=== PATIENT | female | born 1990 | race African-American/Black ===

== ENCOUNTER 2021-01-01 11:33 | Emergency (ER) | payer BC, SELFPAY ==
--- NOTE | ~2021-01-01 | US_ITS ---
US venous doppler LE RT DATE: 01/01/2021 12:37 INDICATION: Right leg pain TECHNIQUE: Real-time and color flow imaging and Doppler analysis of the veins of the right lower extr emity COMPARISON: None FINDINGS: The right greater saphenous vein is patent. There is spontaneous and phasic flow and normal augmentation and color flow signal and normal compression of the deep veins with the exception of th e peroneal vein. No flow is demonstrated in the peroneal veins, nor compression. IMPRESSION: Peroneal veins thrombosis Reviewed, dictated and finalized at [facility] Reviewed, dictated and finalized at [facility]. IMPRESSION: Peroneal veins thrombosis
[2021-01-01 11:41] VITALS: BP 131/93; PULSE 100; RESP 16; TEMP 36.4; O2SAT 100
--- NOTE | 2021-01-01 13:12 | ED.GENADULT ---
HPI - General Adult General Chief complaint: Extremity Injury, Lower Stated complaint: rle pain Time Seen by Provider: 01/01/21 11:56 Source: patient Mode of arrival: ambulatory Limitations: no limitations History of Present Illness HPI narrative: Patient is a 30-year-old female who presents to emergency department for right calf pain has been present for the last several days patient notes mother and other family members with history of clotting disorder was recently started on a new control medication notes a dull aching pain in the calf denies any chest pain shortness of breath lightheadedness dizziness or other complaints does not appear uncomfortable upon arrival Related Data Home Medications Medication Instructions Recorded Confirmed amphetamine sulfate 5 mg tablet 5 mg PO DAILY 07/05/20 Allergies Allergy/AdvReac Type Severity Reaction Status Date / Time No Known Allergies Allergy Verified 01/01/21 11:44 Review of Systems Review of Systems: All systems reviewed & are unremarkable except as noted in HPI and below PMFSH Past Medical History Medical History Attention deficit disorder History of genital warts Surgical History Surgical History [place] teeth removed Family History Family History Mother Blood clot in vein Hypertension Social History Social History Smoking status: Light tobacco smoker Alcohol intake: current Substance use: never Gender identity (if verbalized by the patient): Female Exam Narrative: Exam Narrative: GENERAL: Well-appearing, well-nourished, and in no acute distress. HEAD: Normocephalic, atraumatic. EYES: PERRLA and EOMI. ENT: Nares clear, no rhinorrhea or epistaxis. Mucous membranes moist. CHEST: Clear to auscultation. No respiratory distress. No wheezes rales or rhonchi HEART: Regular rate and rhythm. No murmur heard. Normal peripheral pulses. EXTREMITIES: Normal range of motion. No edema. Tenderness of the right calf SKIN: Warm, dry, no rash. NEURO: No focal deficits. Alert and oriented x3. Neurovascularly intact PSYCH: Normal mood and affect. Course Course Emergency Course: Patient evaluated emergency department found to have DVT hemodynamically stable ABCs and vital signs intact and stable started on Eliquis will follow with her primary care felt appropriate for outpatient reevaluation given reasons to return Vital Signs Vital signs: Vital Signs Temperature 97.5 F L 01/01/21 11:41 Pulse Rate 100 01/01/21 11:41 Respiratory Rate 16 01/01/21 11:41 Blood Pressure 131/93 H 01/01/21 11:41 Pulse Oximetry 100 01/01/21 11:41 Temperature 97.5 F L 01/01/21 11:41 Pulse Rate 100 01/01/21 11:41 Respiratory Rate 16 01/01/21 11:41 Blood Pressure 131/93 H 01/01/21 11:41 Pulse Oximetry 100 01/01/21 11:41 Medical Decision Making MDM Narrative Medical decision making narrative: Patients injury or pain is consistent with musculoskeletal etiology. No signs of neurological or vascular compromise on exam. Compartments and tisues are soft without signs of compartment syndrome. Pain is felt appropriate for further evaluation on an outpatient basis. Started on Eliquis treated for DVT advised to discontinue using her control and use barrier contraception until she sees her primary care doc Vital Signs Vital Signs: Vital Signs Temperature 97.5 F L 01/01/21 11:41 Pulse Rate 100 01/01/21 11:41 Respiratory Rate 16 01/01/21 11:41 Blood Pressure 131/93 H 01/01/21 11:41 Pulse Oximetry 100 01/01/21 11:41 Temperature 97.5 F L 01/01/21 11:41 Pulse Rate 100 01/01/21 11:41 Respiratory Rate 16 01/01/21 11:41 Blood Pressure 131/93 H 01/01/21 11:41 Pulse Oximetry 100 01/01/21 11:41
[2021-01-01 13:17] LABS: Basophils Percent Auto 0.3 % (0.2-1.2); Eosinophils Absolute Auto 0.1 K/mm3 (0-0.3); Eosinophils Percent Auto 1.2 % (0-4.4); Hematocrit 34.2 % (37.0-47.0); Hemoglobin 10.9 g/dL (12.0-15.0); Immature Granulocyte Absolute 0.02 K/mm3 (0.00-0.031); Immature Granulocyte Percent A 0.3 % (0-0.5); Lymphocytes Percent Auto 35.1 % (18.3-44.2); Mean Corpuscular HGB Conc 31.9 g/dl (32-36); Mean Corpuscular Hemoglobin 27.9 pg (26-34); Mean Corpuscular Volume 87.7 fl (80-100); Mean Platelet Volume 8.7 fl (7.4-10.4); Monocytes Absolute Auto 0.4 K/mm3 (0.1-0.6); Monocytes Percent Auto 7.3 % (2.6-8.5); Neutrophils Absolute Auto 3.3 K/mm3 (1.3-6.7); Neutrophils Percent Auto 55.8 % (45.5-73.1); Platelet Count Result 263 k/mm3 (150-375); Red Cell Distribution Width 16.6 % (11.5-14.5)
[2021-01-01] MEDS: APIXABAN 5 MG TABLET 10 MG PO (13:26)
[2021-01-01 13:29] VITALS: BP 136/85; PULSE 92; RESP 18; O2SAT 100
[2021-01-01 13:30] LABS: Anion Gap 4 mmol/L (8-16); Blood Urea Nitrogen 11 mg/dL (7-17); Carbon Dioxide 27 mmol/L (22-30); Chloride 106 mmol/L (98-107); Estimated CRCL calculation 83 ml/min; Estimated Glomerular Filt Rate > 60; Glucose 100 mg/dL (65-105); Potassium 4.4 mmol/L (3.4-5.0); Sodium 137 mmol/L (137-145)
== END 2021-01-01 13:30 | disposition home or self-care (01) ==
PROVIDERS: Emergency Medicine Emergency Medical Services; Emergency Provider Family Medicine
DX: I82.451 Acute embolism and thrombosis of right peroneal vein (principal); F98.8 Other specified behavioral and emotional disorders with onset usually occurring in childhood and adolescence; F17.200 Nicotine dependence, unspecified, uncomplicated
CPT/HCPCS: 36415; 80048; 85025; 93971; 99284; A9270

== ENCOUNTER 2021-05-25 07:15 | Emergency (ER) | payer BC, SELFPAY ==
--- NOTE | ~2021-05-25 | XR_ITS ---
EXAMINATION: XR chest 1V portable EXAM DATE: 05/25/2021 07:41 INDICATION: COVID positive diagnosed May 09. Chest tightness. History of blood clots. TECHNIQUE: Portable AP frontal chest x-ray was obtained. Comparison is made to prior examination from 12/15/2011. FINDINGS: The lungs are clear. There are no pleural effusions. The cardiomediastinal silhouette is within normal limits. There is no pneumothorax suspected. The bones and soft tissues are unremarkab le. IMPRESSION: No acute cardiopulmonary findings. Reviewed, dictated and finalized at [facility].
--- NOTE | ~2021-05-25 | CT_ITS ---
EXAMINATION: CTA chest PE protocol EXAM DATE: 05/25/2021 08:28 INDICATION: Recent COVID diagnosis, chest tightness and shortness of breath. History of blood clot in leg. TECHNIQUE: Spiral CTA of the chest (pulmonary arteries) was performed with 100 cc Omnipaque 350 intr avenous contrast injection. Images were acquired during the pulmonary arterial phase. Coronal maxi mum intensity projection 3D-reconstructions were created by the technologist on dedicated workstation . Axial, coronal and sagittal reformatted images were reviewed. The dose-length product (DLP) for t his examination was 179.19 mGy-cm. The exposure was tailored according to patient size (auto mA exp osure control), and iterative reconstruction (ASIR) was used as additional dose reduction technique. Comparison is made to prior examination from 12/05/2011. FINDINGS: Pulmonary arteries are well opacified and without intraluminal filling defects. No thora cic aortic dissection. Several small regions of right-sided peripheral groundglass airspace disease, appearance and distribution consistent with early COVID pneumonia. There are no pleural or pericard ial effusions. Tracheobronchial tree is patent. Mild reactive right hilar lymphadenopathy. There is no pneumothorax. Heart normal in size. No evidence of coronary arterial calcification. Upper abdomen is unremarkable. The bones are unremarkable. IMPRESSION: 1. Small amount of right-sided groundglass opacity, consistent with COVID pneumonia. 2. Reactive right hilar lymphadenopathy. Reviewed, dictated and finalized at [facility]. IMPRESSION: 1. Small amount of right-sided groundglass opacity, consistent with COVID pneu monia. 2. Reactive right hilar lymphadenopathy.
[2021-05-25 07:18] VITALS: BP 115/88; PULSE 80; RESP 18; TEMP 36.4; O2SAT 100
--- NOTE | 2021-05-25 07:28 | ECG_ITS ---
Measurements Intervals [place] Rate: 78 P: 54 OR: 155 QRS: 34 QRSD: 77 T: 0 QT: 343 QTc: 392 Interpretive Statements SINUS RHYTHM BASELINE ARTIFACT- I, III, AVL, V4-V6 NORMAL ECG Electronically Signed On 05-25-2021 8:36:48 CDT by Jase Parham D.O.
[2021-05-25 07:31] VITALS: BP 116/79; PULSE 81; RESP 14; O2SAT 100
[2021-05-25 07:38] LABS: Basophils Percent Auto 0.5 % (0.2-1.2); Eosinophils Absolute Auto 0.1 K/mm3 (0-0.3); Eosinophils Percent Auto 1.5 % (0-4.4); Hematocrit 32.6 % (37.0-47.0); Hemoglobin 9.8 g/dL (12.0-15.0); Immature Granulocyte Absolute 0.03 K/mm3 (0.00-0.031); Immature Granulocyte Percent A 0.5 % (0-0.5); Lymphocytes Absolute Auto 2.45 K/mm3 (0.9-3.2); Lymphocytes Percent Auto 37.3 % (18.3-44.2); Mean Corpuscular HGB Conc 30.1 g/dl (32-36); Mean Corpuscular Hemoglobin 25.3 pg (26-34); Mean Platelet Volume 9.2 fl (7.4-10.4); Monocytes Absolute Auto 0.6 K/mm3 (0.1-0.6); Monocytes Percent Auto 9.1 % (2.6-8.5); Neutrophils Absolute Auto 3.4 K/mm3 (1.3-6.7); Neutrophils Percent Auto 51.1 % (45.5-73.1); Platelet Count Result 325 k/mm3 (150-375); Red Blood Count 3.88 M/mm3 (4.2-5.4); Red Cell Distribution Width 17.2 % (11.5-14.5); White Blood Count 6.6 K/mm3 (4.5-10.0)
[2021-05-25 07:46] VITALS: BP 110/73; PULSE 74; RESP 19; O2SAT 100
[2021-05-25 07:49] LABS: Anion Gap 6 mmol/L (8-16); Blood Urea Nitrogen 9 mg/dL (7-17); Calcium 9.1 mg/dL (8.4-10.2); Carbon Dioxide 21 mmol/L (22-30); Chloride 110 mmol/L (98-107); Estimated CRCL calculation 91 ml/min; Estimated Glomerular Filt Rate > 60; Glucose 90 mg/dL (65-110); Potassium 4.3 mmol/L (3.4-5.0); Sodium 137 mmol/L (137-145)
[2021-05-25 07:58] LABS: Prothrombin Time 12.8 Seconds (11.1-14.7)
[2021-05-25 07:59] LABS: Partial Thromboplastin Time 23.8 SECONDS (22.3-36.8)
[2021-05-25 08:00] LABS: Troponin I < 0.012 ng/mL (0.000-0.034)
[2021-05-25 08:01] VITALS: BP 106/79; PULSE 74; RESP 20; O2SAT 100
--- NOTE | 2021-05-25 09:24 | ED.GENADULT ---
HPI - General Adult General Chief complaint: Upper Respiratory Infection Stated complaint: Chest Pressure Time Seen by Provider: 05/25/21 07:33 Source: patient History of Present Illness HPI narrative: Patient had Covid symptoms on May 07, 2 days later tested positive for COVID-19. Been quarantined since. Today supposed to go back to work came to the emergency room complaining of chest pain. Patient denies any fever, chills, nausea, vomiting, headache, shortness of breath. History of deep vein thrombosis on Eliquis. Related Data Home Medications Medication Instructions Recorded Confirmed amphetamine sulfate 5 mg tablet 5 mg PO DAILY 07/05/20 Allergies Allergy/AdvReac Type Severity Reaction Status Date / Time No Known Allergies Allergy Verified 01/01/21 11:44 Review of Systems Review of Systems: CONSTITUTIONAL: Denies fever, chills, or sweats. EYES: Denies visual changes, redness, or discharge. ENT: Denies rhinorrhea, congestion, sore throat, or otalgia. CARDIOVASCULAR: Denies chest pain, palpitations, or edema. RESPIRATORY: Denies cough or dyspnea. GASTROINTESTINAL: Denies abdominal pain, nausea, vomiting, or diarrhea. GENITOURINARY: Denies dysuria or hematuria. SKIN: Denies rash or itching. MUSCULOSKELETAL: Denies back pain, joint pain, or myalgia. NEUROLOGIC: Denies headache, numbness, or weakness. PSYCHIATRIC: Denies anxiety or depression. PMFSH Past Medical History Medical History Attention deficit disorder History of genital warts Surgical History Surgical History [place] teeth removed Family History Family History Mother Blood clot in vein Hypertension Social History Social History Smoking status: Light tobacco smoker Alcohol intake: current Substance use: never Gender identity (if verbalized by the patient): Female Exam Narrative: General appearance: Well-developed, well-nourished Skin: Normal color Head: Normocephalic, nontraumatic Eyes: Clear conjunctiva ENT: Oropharynx normal, ears normal, nose normal Neck: Supple, nontender Chest and respiratory: Airway patent, no respiratory distress, no accessory muscle use Heart: Regular rate/rhythm Abdomen: Soft, nontender, no organomegaly, quiet bowel sounds Vascular: Normal peripheral pulses, normal capillary refill. Musculoskeletal: Normal range of motion, nontender back Neurologic: Alert and oriented ?3, HEAD CHARGER is normal as tested, no gross motor deficit Course Course Emergency Course: Stable Vital Signs Vital signs: Vital Signs Temperature 36.4 C L 05/25/21 07:18 Pulse Rate 80 05/25/21 07:18 Respiratory Rate 18 05/25/21 07:18 Blood Pressure 115/88 05/25/21 07:18 Pulse Oximetry 100 05/25/21 07:18 Temperature 36.4 C L 05/25/21 07:18 Pulse Rate 74 05/25/21 08:01 Respiratory Rate 20 05/25/21 08:01 Blood Pressure 106/79 05/25/21 08:01 Pulse Oximetry 100 05/25/21 08:01 Medical Decision Making Vital Signs Vital Signs: Vital Signs Temperature 36.4 C L 05/25/21 07:18 Pulse Rate 80 05/25/21 07:18 Respiratory Rate 18 05/25/21 07:18 Blood Pressure 115/88 05/25/21 07:18 Pulse Oximetry 100 05/25/21 07:18 Temperature 36.4 C L 05/25/21 07:18 Pulse Rate 74 05/25/21 08:01 Respiratory Rate 20 05/25/21 08:01 Blood Pressure 106/79 05/25/21 08:01 Pulse Oximetry 100 05/25/21 08:01 Lab Data Result diagrams: 05/25/21 07:31 05/25/21 07:31 Labs: Lab Result
[2021-05-25 09:30] VITALS: BP 109/83; PULSE 77; RESP 15; O2SAT 100
[2021-05-25 09:45] VITALS: BP 117/82; PULSE 73; RESP 12; O2SAT 100
== END 2021-05-25 09:45 | disposition home or self-care (01) ==
PROVIDERS: Emergency Provider Emergency Medicine
DX: U07.1 COVID-19 (principal); J12.82 Pneumonia due to coronavirus disease 2019; R07.9 Chest pain, unspecified; F98.8 Other specified behavioral and emotional disorders with onset usually occurring in childhood and adolescence; F17.200 Nicotine dependence, unspecified, uncomplicated
CPT/HCPCS: 36415; 71045; 71275; 80048; 84484; 85025; 85610; 85730; 93005; 99284; Q9967

== ENCOUNTER 2021-11-25 07:17 | Emergency (ER) | payer BC, SELFPAY ==
--- NOTE | ~2021-11-25 | CT_ITS ---
EXAMINATION: CT brain wo con EXAM DATE: 11/25/2021 07:47 INDICATION: Head Trauma, On Elequis, Worsening Headache . TECHNIQUE: Spiral CT of the head was performed without contrast. Axial, coronal and sagittal images were reviewed. The dose-length product (DLP) for this examination was 605.33 mGy-cm. The exposure w as tailored according to patient size, and iterative reconstruction (ASIR) was used as additional dos e reduction technique. There is no prior study for comparison. FINDINGS: There is no acute intraparenchymal hemorrhage. No evidence of intraparenchymal brain mass lesion. No evidence of acute infarction. There is no mass effect or midline shift. The ventricles are normal in size. There are no extra-axial collections. There are no acute calvarial fractures. T he orbits are unremarkable. Soft tissue is unremarkable. The visualized sinuses and mastoid air dagoberto ls are well aerated. IMPRESSION: 1. Unremarkable head CT examination. Reviewed, dictated and finalized at [facility]. GER DRILLING
[2021-11-25 07:22] VITALS: BP 125/92; PULSE 82; RESP 18; TEMP 36.6; O2SAT 100
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
[2021-11-25] MEDS: KETOROLAC 30 MG/ML VIAL (*BKC) IM (08:11)
== END 2021-11-25 08:55 | disposition home or self-care (01) ==
LOC: ANHED 08:35
PROVIDERS: Emergency Provider Emergency Medicine
DX: S01.81XD Laceration without foreign body of other part of head, subsequent encounter (principal); X99.0XXD Assault by sharp glass, subsequent encounter
CPT/HCPCS: 70450; 96372; 99284; J1885

== ENCOUNTER 2022-05-28 14:04 | Emergency (ER) | payer BC, SELFPAY ==
[2022-05-28 14:13] VITALS: BP 120/71; PULSE 81; RESP 18; TEMP 36.1; O2SAT 100
--- NOTE | 2022-05-28 14:42 | ED.EAR ---
HPI - Ear Problem General Chief complaint: Ear Stated complaint: Right Ear Irritation Time Seen by Provider: 05/28/22 14:42 Source: patient, RN notes reviewed and old records reviewed Mode of arrival: ambulatory Limitations: no limitations History of Present Illness HPI Narrative: 32-year-old female presents to the [facility] with complaints of ear pressure, irritation for at least 2 weeks. Reports ear popping or feels clogged. Has been using ring relief eardrops Denies headache. Denies fevers. No chest pain or shortness of breath. Denies any other upper respiratory symptoms Related Data Allergies Allergy/AdvReac Type Severity Reaction Status Date / Time No Known Allergies Allergy Verified 01/01/21 11:44 Review of Systems Review of Systems: All systems reviewed & are unremarkable except as noted in HPI and below Constitutional: Constitutional: Reports no additional constitutional complaints, Denies chills and Denies fever(s) Eyes: Eyes: Reports no additional eye complaints ENT: Reports system reviewed and no additional complaints, except as documented Cardiovascular: Cardiovascular: Reports no additional cardiovascular complaints Respiratory: Respiratory: Reports no additional respiratory complaints Gastrointestinal: Gastrointestinal: Reports no additional gastrointestinal complaints Musculoskeletal: Musculoskeletal: Reports no additional musculoskeletal complaints Integumentary/Breasts: Skin/Breast: Reports system reviewed and no additional complaints, except as docu Neurologic: Reports system reviewed and no additional complaints, except as documented Psychiatric: Psychiatric: Reports no additional psychiatric complaints Allergic/Immunologic: Allergic/Immunologic: Reports no additional allergic/immunologic complaints [facility] Past Medical History Medical History Attention deficit disorder History of genital warts Surgical History Surgical History [place] teeth removed Family History Family History Mother Blood clot in vein Hypertension Social History Social History Smoking status: Light tobacco smoker Alcohol intake: current Substance use: never Gender identity (if verbalized by the patient): Female Comments At the time of my signature, I reviewed and agree with the nursing past medical, surgical, social, and family history. There is no relevant family history pertinent to the patient complaint. Exam Const: General: healthy appearing, no acute distress and alert Nutritional Appearance: well nourished Orientation/consciousness: patient oriented x3 Limitations: no limitations HENMT: Head: normal to inspection Ears: external ears normal, Abnormal EAC present erythema bilateral, edema bilateral and EAC tenderness and TM abnormal bulging bilateral; Negative for diffuse and with fluid behind the TM bilateral; not erythematous Eyes: General: appearance normal, both eyes and all related structures Pupils: Equal, round and reactive pupils present Neck: Neck: normal visual inspection, no lymphadenopathy and no meningeal signs Chest: Chest palpation & inspection: normal inspection of the chest Resp: Effort & Inspection: normal respiratory effort and no use of accessory muscles Auscultation: clear to auscultation bilaterally, no crackles, no rales, no rhonchi and no wheezes Cardio: Rate: regular rate Rhythm: regular rhythm Back/Spine/Pelvis: Cervical Spine: normal cervical lordosis Thoracic/Lumbar Spine: thoracic and lumbar spine normal to inspection Skin: General skin exam: normal color Rashes: no rashes Wounds: no wounds Neuro: General: patient oriented x3, moves all extremities, no meningeal signs and no focal motor deficits Cranial nerves: Yes Equal, round and r
== END 2022-05-28 14:59 | disposition home or self-care (01) ==
PROVIDERS: Emergency Provider Nurse Practitioner
DX: H65.113 Acute and subacute allergic otitis media (mucoid) (sanguinous) (serous), bilateral (principal); S00.412A Abrasion of left ear, initial encounter; S00.411A Abrasion of right ear, initial encounter; X58.XXXA Exposure to other specified factors, initial encounter; F17.290 Nicotine dependence, other tobacco product, uncomplicated
CPT/HCPCS: 99213; G0463

== ENCOUNTER 2023-04-24 02:06 | Emergency (ER) | payer BC, SELFPAY ==
--- NOTE | ~2023-04-24 | CT_ITS ---
Non-contrast CT scan of the Abdomen and Pelvis Clinical indication: Kidney stone Technique: 2.5 mm axial scans were obtained through the abdomen and pelvis without intravenous or or al contrast. Dose reduction technique was used on this scan by utilizing automated exposure control a nd iterative reconstruction technique. The dose-length product (DLP) was 664.49 mGy-cm. Findings: Images through the lung bases reveal no abnormalities. Questionable minimal fullness of the left ureter. No stones identified in either side. No helen hydro nephrosis. The liver, spleen, pancreas, gallbladder, and adrenals appear normal. There is no aortic aneurysm. There is no evidence of bowel obstruction. No evidence to suggest appendicitis. Images through the pelvis were performed. There is no evidence of ascites or lymphadenopathy. Urinary bladder unremarkable. No pelvic mass seen. No ascites. Impression: Questionable minimal fullness left ureter. Consider recently passed stone. No other significant findings. Reviewed, dictated and finalized at [facility]. Impression: Questionable minimal fullness left ureter. Consider recently passed stone. No other significant findings.
[2023-04-24 02:08] VITALS: BP 130/83; PULSE 113; RESP 20; TEMP 37.1; O2SAT 96
[2023-04-24 02:17] VITALS: BP 133/84; PULSE 108; RESP 25; O2SAT 100
--- NOTE | 2023-04-24 02:36 | ED.GENADULT ---
HPI - General Adult General Chief complaint: Nausea/Vomiting/Diarrhea Stated complaint: flu symptoms Time Seen by Provider: 04/24/23 02:23 History of Present Illness HPI narrative: 33 year old female presented with dysuria, suprapubic pain, and nausea/vomiting. Per patient for the past two days she has been having dysuria and urinary frequency, associated with suprapubic discomfort, bilateral flank pain, and non bilious non bloody emesis. She denied hematuria, diarrhea, chest pain, shortness of breath, fever, vaginal bleeding, vaginal discharge. Related Data Allergies Allergy/AdvReac Type Severity Reaction Status Date / Time oral contraceptive pill AdvReac Other Uncoded 12/18/22 12:24 Review of Systems Review of Systems: See HPI PENDING SALE TO [facility] Past Medical History Medical History Attention deficit disorder History of blood clots when on OCP History of genital warts Surgical History Surgical History [place] teeth removed Family History Family History Mother Blood clot in vein Hypertension Social History Social History Smoking status: Light tobacco smoker Tobacco type: e-cigarettes/vaping Alcohol intake: current Substance use: never Lack of Transportation: No Lack of Food: Never True Current Housing: I Have Housing Concerned About Future Housing: No Difficulty Paying Gas/Electric Bills: No Difficulty Paying for Meds: No Currently Unemployed: No Education: Master's Degree or Higher Difficulty w/ Childcare or Family Care: No Living arrangements: with family Occupation/Education: occupation Gender identity (if verbalized by the patient): Female Sexual Orientation (if Verbalized by the Patient): Straight or Heterosexual Spiritual care concerns: Yes Exam Narrative: General: Alert, calm and cooperative, no acute distress, phonating, sitting comfortably during visit HEENT: Pupils equal round and reactive to light, extra ocular movements intact, no conjunctival injection, head atraumatic, neck supple without meningismus Cardiovascular: Regular rate and rhythm, no visible jugular venous distension Respiratory: Lungs clear to auscultation bilaterally, no wheezing/rales/rhonchi Abdominal: soft, non-tender, non-distended, no guarding, no rebound/peritoneal signs, no costovertebral tenderness to palpation Back: no midline tenderness to palpation, no step offs Extremities: No edema, palpable peripheral pulses, warm, well perfused, no tenderness to bilateral calves Neurological: Alert, moving all extremities symmetrically, ambulating without deficit Course Reevaluation(s) Reevaluation #1: Patient reassessed; reporting resolution of all symptoms. Physical exam benign, sitting comfortably, vitals stable. Date: 04/24/23 Time: 05:55 Vital Signs Vital signs: Vital Signs Temperature 98.7 F 04/24/23 02:08 Pulse Rate 113 H 04/24/23 02:08 Respiratory Rate 20 04/24/23 02:08 Blood Pressure 130/83 04/24/23 02:08 Pulse Oximetry 96 04/24/23 02:08 Oxygen Delivery Room Air 04/24/23 02:08 Temperature 98.7 F 04/24/23 02:08 Pulse Rate 93 04/24/23 06:01 Respiratory Rate 18 04/24/23 06:01 Blood Pressure 104/72 04/24/23 06:01 Pulse Oximetry 100 04/24/23 06:01 Oxygen Delivery Room Air 04/24/23 02:08 Medical Decision Making MDM Narrative Medical decision making narrative: 33 year old female presented with suprapubic discomfort, dysuria, and flank pain. Physical exam benign, abdomen soft and non tender, vitals stable. Differential diagnosis includes but not limited to: nephrolithiasis vs pyelonephritis vs appendicitis vs UTI. Bloodwork reviewed, UA suggestive of UTI vs nephrolithiasis. Patient given toradol and IV fluids with resolution of symptoms. CT abd
[2023-04-24] MEDS: SODIUM CHLORIDE 0.9% IV 1,000 ML 999 ML IV CONT (02:38)
[2023-04-24] MEDS: ONDANSETRON INJ 4 MG/2 ML VIAL IV PUSH (02:50)
[2023-04-24] MEDS: ACETAMINOPHEN 500 MG TABLET 1000 MG PO (02:50)
[2023-04-24 02:52] LABS: Basophils Percent Auto 0.3 % (0.2-1.2); Eosinophils Percent Auto 0.2 % (0-4.4); Hemoglobin 10.3 g/dL (12.0-15.0); Immature Granulocyte Absolute 0.08 K/mm3 (0.00-0.031); Immature Granulocyte Percent A 0.7 % (0-0.5); Lymphocytes Absolute Auto 1.01 K/mm3 (0.9-3.2); Lymphocytes Percent Auto 8.6 % (18.3-44.2); Mean Corpuscular HGB Conc 31.2 g/dl (32-36); Mean Corpuscular Hemoglobin 27.9 pg (26-34); Mean Corpuscular Volume 89.4 fl (80-100); Mean Platelet Volume 9.2 fl (7.4-10.4); Monocytes Absolute Auto 1.2 K/mm3 (0.1-0.6); Monocytes Percent Auto 10.1 % (2.6-8.5); Neutrophils Absolute Auto 9.5 K/mm3 (1.3-6.7); Neutrophils Percent Auto 80.1 % (45.5-73.1); Platelet Count Result 255 k/mm3 (150-375); Red Blood Count 3.69 M/mm3 (4.2-5.4); Red Cell Distribution Width 16.3 % (11.5-14.5); White Blood Count 11.8 K/mm3 (4.5-10.0)
[2023-04-24 02:59] LABS: Appearance Urine Cloudy (Clear); Bacteria Urine None Seen /hpf; Bilirubin Urine Negative (Negative); Blood Urine Trace (Negative); Color Urine Yellow (Yellow); Glucose Urine UA Negative (Negative); Ketones Urine Trace mg/dL (Negative); Leukocyte Esterase Ur 3+ LEU/UL (Negative); Nitrate Urine Negative (Negative); Non Pathogenic Casts 0-2; Protein Urine 2+ mg/dL (Negative); Specific Grav Ur 1.016 (1.001-1.035); Squamous Epithelial Cell Urine Occasional /hpf (Few); WBC Urine >100 /hpf; pH Urine 5.5 (5.0-9.0)
[2023-04-24 03:03] LABS: Alanine Aminotransferase 22 U/L (6-35); Alkaline Phosphatase 76 U/L (38-126); Anion Gap 6 mmol/L (8-16); Aspartate Amino Transferase 28 U/L (14-36); Bilirubin,Total 0.5 mg/dL (0.2-1.3); Blood Urea Nitrogen 10 mg/dL (7-17); Calcium 8.8 mg/dL (8.4-10.2); Carbon Dioxide 25 mmol/L (22-30); Chloride 104 mmol/L (98-107); Estimated CRCL calculation 76 ml/min; Estimated Glomerular Filt Rate > 60; Glucose 115 mg/dL (65-110); Lipase 44 U/L (23-300); Potassium 3.4 mmol/L (3.4-5.0); Sodium 135 mmol/L (137-145)
[2023-04-24 03:06] LABS: Add Urine Microscopic? YES
[2023-04-24 03:24] LABS: SPREG INTERNAL CONTROL Positive; Serum Qual hCG Negative
[2023-04-24] MEDS: KETOROLAC 30 MG/ML VIAL (*BKC) IV PUSH (03:50)
[2023-04-24 06:01] VITALS: BP 104/72; PULSE 93; RESP 18; O2SAT 100
== END 2023-04-24 06:35 | disposition home or self-care (01) ==
PROVIDERS: Emergency Provider Emergency Medicine
DX: N12 Tubulo-interstitial nephritis, not specified as acute or chronic (principal); F17.290 Nicotine dependence, other tobacco product, uncomplicated
CPT/HCPCS: 36415; 74176; 80053; 81001; 81025; 83690; 84703; 85025; 87077; 87086; 87186; 96361; 96365; 96375; 99284; A9270; J0696; J1885; J2405; J7030

== ENCOUNTER 2024-02-10 00:13 | Emergency (ER) | payer BC, SELFPAY ==
[2024-02-10 00:18] VITALS: BP 122/80; PULSE 65; RESP 15; TEMP 36.2; O2SAT 100
[2024-02-10 02:53] LABS: Basophils Percent Auto 0.6 % (0.2-1.2); Eosinophils Percent Auto 0.4 % (0-4.4); Hematocrit 41.3 % (37.0-47.0); Hemoglobin 13.4 g/dL (12.0-15.0); Immature Granulocyte Absolute 0.02 K/mm3 (0.00-0.031); Immature Granulocyte Percent A 0.4 % (0-0.5); Lymphocytes Percent Auto 27.6 % (18.3-44.2); Mean Corpuscular HGB Conc 32.4 g/dl (32-36); Mean Corpuscular Hemoglobin 29.5 pg (26-34); Mean Corpuscular Volume 90.8 fl (80-100); Mean Platelet Volume 8.9 fl (7.4-10.4); Monocytes Absolute Auto 0.6 K/mm3 (0.1-0.6); Monocytes Percent Auto 11.2 % (2.6-8.5); Neutrophils Absolute Auto 3.3 K/mm3 (1.3-6.7); Neutrophils Percent Auto 59.8 % (45.5-73.1); Platelet Count Result 302 k/mm3 (150-375); Red Blood Count 4.55 M/mm3 (4.2-5.4); Red Cell Distribution Width 14.5 % (11.5-14.5); White Blood Count 5.4 K/mm3 (4.5-10.0)
[2024-02-10 03:03] LABS: Alanine Aminotransferase 31 U/L (6-35); Albumin Level 5.3 g/dL (3.5-5.1); Alkaline Phosphatase 65 U/L (38-126); Anion Gap 12 mmol/L (4-12); Aspartate Amino Transferase 39 U/L (14-36); Bilirubin,Total 0.5 mg/dL (0.2-1.3); Blood Urea Nitrogen 13 mg/dL (7-17); Carbon Dioxide 24 mmol/L (22-30); Chloride 102 mmol/L (98-107); Estimated CRCL calculation 86 ml/min; Estimated Glomerular Filt Rate > 60; Glucose 85 mg/dL (65-110); Lipase 95 U/L (23-300); Potassium 3.8 mmol/L (3.4-5.0); Sodium 138 mmol/L (137-145)
[2024-02-10] MEDS: ONDANSETRON INJ 4 MG/2 ML VIAL IV PUSH (03:26)
[2024-02-10] MEDS: SODIUM CHLORIDE 0.9% IV 2,000 ML 999 ML IV CONT (03:26)
[2024-02-10] MEDS: KETOROLAC 15 MG/ML VIAL (*BKC) IV PUSH (03:26)
[2024-02-10] MEDS: FAMOTIDINE 20 MG/2 ML VIAL IV PUSH (03:26)
--- NOTE | 2024-02-10 04:05 | PC.NURSE ---
Pt given water for po challenge.
--- NOTE | 2024-02-10 04:06 | ED.GENADULT ---
HPI - General Adult General Chief complaint: Nausea/Vomiting/Diarrhea Stated complaint: abdominal pain, n/v Time Seen by Provider: 02/10/24 02:31 History of Present Illness HPI narrative: This is a 33-year-old female presenting for nausea vomiting and abdominal pain. Symptoms started on Saturday after she took a Mounjaro shot from her mother. This was not prescribed by physician. Since then she has been having persistent nausea and vomiting. No diarrhea. No fever chills Related Data Allergies Allergy/AdvReac Type Severity Reaction Status Date / Time oral contraceptive pill AdvReac Other Uncoded 12/18/22 12:24 [facility] Past Medical History Medical History Attention deficit disorder History of blood clots when on OCP History of genital warts Surgical History Surgical History [place] teeth removed Family History Family History Mother Blood clot in vein Hypertension Social History Social History Smoking status: Light tobacco smoker Tobacco type: e-cigarettes/vaping Alcohol intake: current Substance use: never Lack of Transportation: No Lack of Food: Never True Current Housing: I Have Housing Concerned About Future Housing: No Difficulty Paying Gas/Electric Bills: No Difficulty Paying for Meds: No Currently Unemployed: No Education: Master's Degree or Higher Difficulty w/ Childcare or Family Care: No Living arrangements: with family Occupation/Education: occupation Gender identity (if verbalized by the patient): Female Sexual Orientation (if Verbalized by the Patient): Straight or Heterosexual Spiritual care concerns: Yes Exam Narrative: APPEARANCE: No apparent distress. Head: atraumatic. EYES: EOMI, NOSE: Atraumatic NECK: Trachea midline RESPIRATORY: No increased rate of breathing CARDIOVASCULAR: RRR, ABDOMINAL: Soft nontender no guarding rebound MUSCULOSKELETAl: No obvious deformities NEURO: Alert. Moving 4/4 extremities SKIN:: Warm, dry. Normal color PSYCHIATRIC: Normal affect Course Vital Signs Vital signs: Vital Signs Temperature 97.1 F L 02/10/24 00:18 Pulse Rate 65 02/10/24 00:18 Respiratory Rate 15 02/10/24 00:18 Blood Pressure 122/80 02/10/24 00:18 Pulse Oximetry 100 02/10/24 00:18 Oxygen Delivery Room Air 02/10/24 00:18 Temperature 97.1 F L 02/10/24 00:18 Pulse Rate 65 02/10/24 00:18 Respiratory Rate 15 02/10/24 00:18 Blood Pressure 122/80 02/10/24 00:18 Pulse Oximetry 100 02/10/24 00:18 Oxygen Delivery Room Air 02/10/24 00:18 Medical Decision Making MDM Narrative Medical decision making narrative: -Course: 33-year-old female presenting nausea vomiting after taking Mounjaro off-label for weight loss. Abdominal exam benign. Laboratory studies within normal limits. Given fluid resuscitation and antiemetics. She is now tolerating p.o.. Patient be discharged antiemetics and return precautions. -DDX includes but is not limited to: Medication side effect, gastroenteritis, cyclic vomiting, biliary colic, colitis appendicitis -Independent interpretation of studies: labs reviewed within normal limits -Interventions: 2 L normal saline, Pepcid, Zofran, Toradol -Shared decision making / Disposition: discharge -RX Zofran Vital Signs Vital Signs: Vital Signs Temperature 97.1 F L 02/10/24 00:18 Pulse Rate 65 02/10/24 00:18 Respiratory Rate 15 02/10/24 00:18 Blood Pressure 122/80 02/10/24 00:18 Pulse Oximetry 100 02/10/24 00:18 Oxygen Delivery Room Air 02/10/24 00:18 Temperature 97.1 F L 02/10/24 00:18 Pulse Rate 65 02/10/24 00:18 Respiratory Rate 15 02/10/24 00:18 Blood Pressure 122/80 02/10/24 00:18 Pulse Oximetry 100 02/10/24 00:18 Oxygen De
[2024-02-10 04:15] VITALS: BP 131/78; PULSE 64; RESP 16; O2SAT 100
--- NOTE | 2024-02-28 13:15 | PC.NURSE ---
LATE ENTRY This note is being entered to document information to the patient's record. The following information was omitted on [02/10/24], by [Adelso Elizondo RN]. IV NS stop time [id number]
== END 2024-02-10 04:42 | disposition home or self-care (01) ==
PROVIDERS: Emergency Provider Emergency Medicine
DX: T38.3X1A Poisoning by insulin and oral hypoglycemic [antidiabetic] drugs, accidental (unintentional), initial encounter (principal); R11.2 Nausea with vomiting, unspecified; F17.290 Nicotine dependence, other tobacco product, uncomplicated
CPT/HCPCS: 36415; 80053; 83690; 85025; 96361; 96374; 96375; 99284; J1885; J2405; J7030

== ENCOUNTER 2024-04-20 13:21 | Outpatient (CLI) | payer BC, SELFPAY ==
[2024-04-20 14:25] LABS: Hepatitis B Surface Antigen Negative (Negative)
[2024-04-20 14:33] LABS: HIV 1/2 Ab P24 Ag Result Negative (Negative)
[2024-04-20 14:43] LABS: Hepatitis C Virus Antibody Negative (Negative)
[2024-04-21 13:35] LABS: Rapid Plasma Reagin Non-Reactive (NonReactive)
== END 2024-04-20 13:22 | disposition home or self-care (01) ==
LOC: ANHLAB 13:22
PROVIDERS: Visit Provider Nurse Practitioner Family
DX: Z11.3 Encounter for screening for infections with a predominantly sexual mode of transmission (principal)
CPT/HCPCS: 36415; 86592; 86703; 86803; 87340; G0432

== ENCOUNTER 2025-04-07 13:17 | Emergency (ER) | payer BC, SELFPAY ==
--- NOTE | ~2025-04-07 | US_ITS ---
EXAM/PROCEDURE: US OB <= 14 weeks fetus - 04/07/2025 14:16 CDT HISTORY: 35 years old Female with VB in COMPARISON: None available. TECHNIQUE: Multiple transvaginal images were obtained. FINdINGS: No intrauterine gestation sac seen. Endometrial thickness is 1.5 mm. There is no myometrial abnormali ty. The ovaries appear unremarkable. 1.8 cm right corpus luteal cyst seen. No significant free fluid is seen. IMPRESSION: No intrauterine gestational sac seen. Reviewed, dictated and finalized at location A.
--- OUTSIDE RECORDS SUMMARY | 2025-04-07 13:31 | XMS_ITS | Encounter Summary ---
Author Organization [facility] Address [address] [place] [address] Care Team Providers Care Supervisor Concrete Stone Finishing Name Role Phone Unavailable Primary Care Provider Unavailabl e Encounter Details Date Type Department Care Team (Late st Contact Info) Description 04/06/2025 External Device Data ST[place] ABSTRACTION Provider, Abstract NO ADDRESS ON FILE Social History Tobacco Use Types Packs/Day Years Used Date Smoking Tobacco: Never Assessed Comments Unknown Sex and Gender Information Value Date Recorded Sex Assigned at Female 04/07/2025 9:06 AM CDT Legal Sex Female 9:54 AM CDT Gender Identity Female 04/07/2025 9:06 AM CDT Sexual Orientation Not on file documented as of this encounter Plan of Treatment Upcoming Encounters Date Type Department Care Team (Late st Contact Info) Description 04/28/2025 9:30 AM CDT Ancillary Procedure [facility] TICKETING CLERK - [address] [address] 04/28/2025 1:00 PM CDT Initial [facility] TICKETING CLERK - [address] [address] Xochitl Schilling, DO [address] [place] [address] documented as of this encounter Visit Diagnoses Not on filedocumented in this encounter
--- OUTSIDE RECORDS SUMMARY | 2025-04-07 13:31 | XMS_ITS | Encounter Summary ---
Author Organization [facility] Address [address] [place] [address] Care Team Providers Care Hot Walker Name Role Phone Unavailable Primary Care Provider [...] Description 04/28/2025 9:30 AM CDT Ancillary Procedure [facility] STOCK GRADER - [address] [address] 04/28/2025 1:00 PM CDT Initial [facility] STOCK GRADER - [address] [address] Xochitl Schilling, DO [address] [place] [address] documented as of this encounter Visit Diagnoses Not on filedocumented in this encounter
--- OUTSIDE RECORDS SUMMARY | 2025-04-07 13:31 | XMS_ITS | Clinical Summary ---
Author Organization [facility] Address [address] [place] [address] Care Team Providers Care Smocking Machine Operator Name Role Phone Sola Mills MD Unavailable [phone] Fiordaliza Dennis NP Unavailable [phone] Unknown, Notinfile Primary Care Provider Unavail able Allergies No known active allergies Medications dextroamphetami ne-amphetamine XR (ADDERALL XR) 20 mg 24 hr capsule Take 20 mg by mouth every morning Active Active Problems Problem Noted Date Diagnosed Date History of DVT (deep vein thrombosis) 05/22/2023 Resolved Problems Problem Noted Date Diagnosed Date Resolved Date Acute deep vein thrombosis ( DVT) of right peroneal vein 01/13/2021 05/22/2023 Encounters Date Type Department Care Team Description 04/01/2025 Telephone [facility] Oncology [address] [place] [address] [place] [address] Colton Cunningham MD 03/31/2025 Patient Self-Triage [facility] HealthCare/ Physicians [address] [place] [address] Mychart, Generic Provider from Last 3 Months Surgical History Surgery Date Site/Laterality Comments VAGINA SURGERY Medical History Medical History Date Comments Hypertension Anxiety Acute deep vein thrombosis (DVT) of right perone al vein (HCC) 01/13/2021 Family History Medical History Relation Name Comments No Known Problems Father Pulmonary embolism Mother Relation Name Status Comments Father Alive Mother Alive Social History Tobacco Use Types Packs/Day Years Used Date Smoking Tobacco: Former Cigarettes Smokeless Tobacco: Never AUDIT-C Answer Date Recorded Q1: How often do you have a drink containing alc ohol? 2-4 times a month 05/13/2023 Q2: How many drinks containi ng alcohol do you have on a typical day when you are drinking? 1 or 2 05/13/2023 Q3: How often do you have si x or more drinks on one occasion? 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 Not on file Not on file Obstetrics History Last Filed Vital Signs Vital Sign Reading Time Taken Comments Blood Pressure 118/83 05/13/2023 3:31 PM CDT Pulse 72 05/13/2023 3:31 PM CDT Temperature 36.7 C (98 F) 05/13/2023 3:31 PM CDT Respiratory Rate 18 05/13/2023 3:31 PM CDT Oxygen Saturation 100% 05/13/2023 3:31 PM CDT Inhaled Oxygen Concentration - - Weight 78.7 kg (173 lb 9.6 oz) 05/13/2023 3:31 P M CDT Height 154.9 cm (5' 1) 05/13/2023 3:31 PM CDT Body Mass Index 32.8 05/13/2023 3:31 PM CDT Plan of Treatment Health Maintenance Due Date Last Done Comments Cervical Cancer Screening 1991 Depression Screening 1991 Hepatitis C Screening 1991 DTaP/Tdap/Td Vaccine (1 - Tdap) 2002 Varicella Vaccines (1 of 2 - 13+ 2-dose series) 2004 Hepatitis B Screening 2009 Regular Well Visit/Exam 18-64 2009 Influenza Vaccine (#1) 2025 HPV Vaccines Aged Out No longer eligi ble based on patient's age to complete this topic Pneumococcal vaccine <65 Aged Out No longer eligible based on patient's age to complete this topic [place] Care Teams Smocking Machine Operator Relationship Specialty Start Date End Date Unknown, Notinfile PCP - General 05/14/23 Sola Mills MD [address] [facility] [address] [place] [address] Referring Physician Obstetrics and Gynecology 07/05/20 Fiordaliza Dennis, TRAVELING OPERATOR [address] [facility] [address] [place] [address] Nurse Practitioner Medical Oncology 05/13/23
--- OUTSIDE RECORDS SUMMARY | 2025-04-07 13:31 | XMS_ITS | Referral Summary ---
Author Organization [facility] Address [address] [place] [address] Care Team Providers Care Template Storage Clerk Name Role Phone Sola Mills MD Unavailable [phone] Fiordaliza Dennis NP Unavailable [phone] Unknown, Notinfile Primary Care Provider Unavail able Encounters Date Type Department Care Team Description 04/01/2025 Telephone [facility] Oncology [facility] [facility] [address] [place] [address] Colton Cunningham MD 03/31/2025 Patient Self-Triage [facility] HealthCare/ Physicians [address] [place] [address] Mychart, Generic Provider from Last 3 Months Allergies No known active allergies Medications dextroamphetami ne-amphetamine XR (ADDERALL XR) 20 mg 24 hr capsule Take 20 mg by mouth every morning Active Active Problems Problem Noted Date Diagnosed Date History of DVT (deep vein thrombosis) 05/22/2023 Resolved Problems Problem Noted Date Diagnosed Date Resolved Date Acute deep vein thrombosis ( DVT) of right peroneal vein 01/13/2021 05/22/2023 Social History Tobacco Use Types Packs/Day Years [...] on file Legal Sex Female 7:47 PM CABINETMAKER HELPER Gender Identity Not on file Sexual Orientation Not on file 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
--- OUTSIDE RECORDS SUMMARY | 2025-04-07 13:31 | XMS_ITS | Encounter Summary ---
Author Organization [facility] Address [address] [place] [address] Care Team Providers Care Legal Support Manager Name Role Phone Unavailable Primary Care Provider [...] Description 04/28/2025 9:30 AM CDT Ancillary Procedure [facility] ROOM WORKER - [address] [address] 04/28/2025 1:00 PM CDT Initial [facility] ROOM WORKER - [address] [address] Xochitl Schilling, DO [address] [place] [address] documented as of this encounter Visit Diagnoses Not on filedocumented in this encounter
--- OUTSIDE RECORDS SUMMARY | 2025-04-07 13:31 | XMS_ITS | Clinical Summary ---
Author Organization [facility] Address [address] [place] [address] Phone Care Team Providers Care Magazine Editor Name Role Phone Unavailable Primary Care Provider Unavailabl e Allergies No known active allergies Medications enoxaparin (Lovenox) 40 mg/0.4 mL injectionIndica tions:Personal history of DVT (deep vein thrombosis) Inject 0.4 mL (40 mg) by subcutaneous injection every 24 hours. 30 Each 2 Active Active Problems No known active problems Encounters Date Type Department Care Team Description 04/06/2025 External Device Data STL ABSTRACTION Provider, Abstract 04/06/2025 External Device Data STL ABSTRACTION Provider, Abstract 04/06/2025 External Device Data STL ABSTRACTION Provider, Abstract 03/31/2025 10:00 AM CDT Office Visit [facility] HOOKER UP [address] [facility] [address] [address] Xochitl Schilling DO Missed menses (Primary Dx); Personal history of DVT (deep vein thrombosis); Vaginal spotting from Last 3 Months Social History Tobacco Use Types Packs/Day Years Used Date Smoking Tobacco: Never Assessed Comments Unknown Sex and Gender Information Value Date Recorded Sex Assigned at Female 04/07/2025 9:06 AM CDT Legal Sex Female 9:54 AM CDT Gender Identity Female 04/07/2025 9:06 AM CDT Sexual Orientation Not on file Last Filed Vital Signs Vital Sign Reading Time Taken Comments Blood Pressure 132/72 03/31/2025 10:07 AM CDT Pulse 86 03/31/2025 10:07 AM CDT Temperature - - Respiratory Rate 14 03/31/2025 10:07 AM CDT Oxygen Saturation 99% 03/31/2025 10:07 AM CDT Inhaled Oxygen Concentration - - Weight 79.8 kg (176 lb) 03/31/2025 10:07 AM CDT Height 157.5 cm (5' 2) 03/31/2025 10:07 AM CDT Body Mass Index 32.19 03/31/2025 10:07 AM CDT Plan of Treatment Upcoming Encounters Date Type Department Care Team (Late st Contact Info) Description 04/28/2025 9:30 AM CDT Ancillary Procedure [facility] HOOKER UP - [address] [facility] [address] [address] 04/28/2025 1:00 PM CDT Initial [facility] HOOKER UP - [address] [facility] [address] [address] Tonie Shaegeraldine Marr, DO [address] [place] [address] Health Maintenance Due Date Last Done Comments DTAP/TDAP/TD VACCINES (1 - Tdap) 2010 HEPATITIS B VACCINES (1 of 3 - 19+ 3-dose series) 2010 HPV/Cotest (21-29) 2012 CERVICAL CANCER SCREENING 2021 HPV/Cotest (30-65) 2021 PAP SMEAR 2021 INFLUENZA VACCINE (#1) 2025 HPV VACCINES Aged Out No longer eligi ble based on patient's age to complete this topic Procedures Procedure Name Priority Date/Time Associated Diagnosis Comments TSH REFLEXIVE Routine 04/06/2025 9:19 AM CDT Missed menses GLUCOSE TOLERANCE 1 HR GESTATIONAL Routine 04/06/2025 9:19 AM CDT Missed menses URINE CULTURE, W/GBS SUSCEPTIBILITIES Routine 04/05/2025 1:37 PM CDT Missed menses GC/CHLAMYDIA, UROGENITAL Routine 025 1:32 PM CDT Missed menses from Last 3 Months Results * GLUCOSE TOLERANCE 1 HR GESTATIONAL (04/06/2025 9:19 AM CDT) GLUCOSE 1 HR OBSTETRIC 107 <135 mg/dL [facility] Comment: FASTING:YES FASTING: YES Test Performed at: [facility] [place] [address] [place] [address] [facility] Blood 04/06/2025 9:19 AM CDT 04/06/2025 9:20 AM CDT Xochitl Schilling DO CHEMISTRY ORDERABLES F inal Result Performing Organization Address City/[facility]/ZIP Code Phone Number [facility] [phone] [place] [address] [place] [address] * TSH REFLEXIVE (04/06/2025 9:19 AM CDT) TSH 1.15 mIU/L [facility] Comment: Reference Range > or = 20 Years 0.40-4.50 Ranges First trimester 0.26-2.66 Second trimester 0.55-2.73 Third trimester 0.43-2.91 FASTING:YES FASTING: YES Test Performed at: [facility] [address] [address] [facility] Blood 04/06/2025 9:19 AM CDT 04/06/2025 9:20 AM CDT Xochitl Schilling DO CHEMISTRY ORDERABLES F inal Result Performing Organization Address City/[facility]/ZIP Code Phone Number [facility] [phone] [place] [address] [address] * URINE CULTURE, W/GBS SUSCEPTIBILITIES (04/05/2025 1:37 PM CDT) CULTURE, URINE, , W/GBS SUSCEPTIBILITIES SEE NOTE [facility] Comment: CULTURE, URINE, , W/GBS SUSCEPTIBILITIES Micro Number: [id number] Test Status: Final Specimen Source: Urnie Specimen Quality: Adequate Result: No Growth Test Performed at: [place] [address] [place] [address] Donta Joshua Urine URINE SPECIMEN OBTAINED BY CLEAN CATCH PROCEDURE / Unknown 04/05/2025 1:37 PM CDT 04/05/2025 1:37 PM CDT Xochitl Schilling DO MICROBIOLOGY - GENERAL ORDERABLES Final Result [facility] [phone] [place] [address] [place] [address] * GC/CHLAMYDIA, UROGENITAL (04/05/2025 1:32 PM CDT) CHLAMYDIA TRACHOMATIS RNA, TMA, UROGENITAL NOT DETECTED NOT DETECTED [facility] NEISSERIA GONORRHOEAE RNA, TMA, UROGENITAL NOT DETECTED NOT DETECTED [facility] COMMENT INFECTIOUS DISEASE [facility] Comment: The analytical performance characteristics of this assay, when used to test SurePath(TM) specimens have been determined by [facility]. The modifications have not been cleared or approved by the FDA. This assay has been validated pursuant to the CLIA regulations and is used for clinical purposes. For additional information, please refer to https://education.[employer]/faq/LYI247 (This link is being provided for information/ educational purposes only.) FASTING:NO FASTING: NO Test Performed at: [place] [address] [address] Donta Joshua MD Genital (Urine, 1st catch) 04/05/2025 1:32 PM CDT 04/05/2025 1:33 PM CDT Xochitl Schilling DO MICROBIOLOGY - GENERAL ORDERABLES Final Result [facility] [phone] [facility] [address] [place] [address] from Last 3 Months Insurance [facility] BLUE ACCESS/TRUE BLUE PPO
[2025-04-07 13:32] VITALS: BP 118/72; PULSE 80; RESP 16; TEMP 36.2; O2SAT 98
--- OUTSIDE RECORDS SUMMARY | 2025-04-07 14:23 | XMS_ITS | Encounter Summary ---
Author Organization [facility] Address [address] [place] [address] Care Team Providers Care Petroleum Engineer Name Role Phone Unavailable Primary Care Provider [...] Description 04/28/2025 9:30 AM CDT Ancillary Procedure [facility] FLAT FOLDER - [address] [address] 04/28/2025 1:00 PM CDT Initial [facility] FLAT FOLDER - [address] [address] Xochitl Schilling, DO [address] [place] [address] documented as of this encounter Visit Diagnoses Not on filedocumented in this encounter
--- OUTSIDE RECORDS SUMMARY | 2025-04-07 14:23 | XMS_ITS | Encounter Summary ---
Author Organization [facility] Address [address] [place] [address] Care Team Providers Care Bookkeeping Service Sales Agent Name Role Phone Unavailable Primary Care Provider [...] Description 04/28/2025 9:30 AM CDT Ancillary Procedure [facility] CIRCUIT BREAKER MECHANIC - [address] [address] 04/28/2025 1:00 PM CDT Initial [facility] CIRCUIT BREAKER MECHANIC - [address] [address] Xochitl Schilling, DO [address] [place] [address] documented as of this encounter Visit Diagnoses Not on filedocumented in this encounter
--- OUTSIDE RECORDS SUMMARY | 2025-04-07 14:23 | XMS_ITS | Clinical Summary ---
Author Organization [facility] Address [address] [place] [address] Care Team Providers Care Call Center Specialist Name Role Phone Sola Mills MD Unavailable [phone] Fiordaliza Dennis NP Unavailable [phone] Unknown, Notinfile Primary Care Provider Unavail able [...] Type Department Care Team Description 04/01/2025 Telephone [facility] Oncology [address] [place] [address] [place] [address] Colton Cunningham MD 03/31/2025 Patient Self-Triage [facility] HealthCare/ Physicians [address] [place] [address] Mychart, Generic Provider from Last 3 Months [...] on file Legal Sex Female 7:47 PM ACCOUNTING MANAGER ASSISTANT CONTROLLER Gender Identity Not on file Sexual Orientation Not on file 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
--- OUTSIDE RECORDS SUMMARY | 2025-04-07 14:23 | XMS_ITS | Referral Summary ---
Author Organization [facility] Address [address] [place] [address] Care Team Providers Care Guard Captain Name Role Phone Sola Mills MD Unavailable [phone] Fiordaliza Dennis NP Unavailable [phone] Unknown, Notinfile Primary Care Provider Unavail able Encounters Date Type Department Care Team Description 04/01/2025 Telephone [facility] Oncology [facility] [facility] [address] [place] [address] Colton Cunningham MD 03/31/2025 Patient Self-Triage [facility] HealthCare/ Physicians [address] [place] [address] Mychart, Generic Provider from Last [...] on file Legal Sex Female 7:47 PM TELEPHONE SEX WORKER Gender Identity Not on file Sexual Orientation Not on file 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
--- OUTSIDE RECORDS SUMMARY | 2025-04-07 14:23 | XMS_ITS | Encounter Summary ---
Author Organization [facility] Address [address] [place] [address] Care Team Providers Care Artificial Stone Setter Name Role Phone Unavailable Primary Care Provider [...] Description 04/28/2025 9:30 AM CDT Ancillary Procedure [facility] INTERLOCKER - [address] [address] 04/28/2025 1:00 PM CDT Initial [facility] INTERLOCKER - [address] [address] Xochitl Schilling, DO [address] [place] [address] documented as of this encounter Visit Diagnoses Not on filedocumented in this encounter
--- OUTSIDE RECORDS SUMMARY | 2025-04-07 14:23 | XMS_ITS | Clinical Summary ---
Author Organization [facility] Address [address] [place] [address] Phone Care Team Providers Care Air Moving Technician Name Role Phone Unavailable Primary Care Provider [...] Abstract 03/31/2025 10:00 AM CDT Office Visit [facility] DIRECTOR CONSUMER - [address] [facility] [address] [address] Xochitl Schilling DO Missed menses [...] Description 04/28/2025 9:30 AM CDT Ancillary Procedure [facility] DIRECTOR CONSUMER - [address] [facility] [address] [address] 04/28/2025 1:00 PM CDT Initial [facility] DIRECTOR CONSUMER - [address] [facility] [address] [address] Tonie Shaegeraldine Marr, DO [address] [place] [address] Health Maintenance Due Date Last [...] GLUCOSE 1 HR OBSTETRIC 107 <135 mg/dL [facility] Comment: FASTING:YES FASTING: YES Test Performed at: [facility] [place] [address] [place] [address] [facility] Blood 04/06/2025 9:19 AM CDT 04/06/2025 9:20 AM CDT Xochitl Schilling DO CHEMISTRY ORDERABLES F inal Result Performing Organization Address City/[facility]/ZIP Code Phone Number [facility] [phone] [place] [address] [place] [address] * TSH REFLEXIVE (04/06/2025 9:19 AM CDT) TSH 1.15 mIU/L [facility] Comment: Reference Range > or = 20 Years 0.40-4.50 Ranges First trimester 0.26-2.66 Second trimester 0.55-2.73 Third trimester 0.43-2.91 FASTING:YES FASTING: YES Test Performed at: [place] [address] [address] [facility] Blood 04/06/2025 9:19 AM CDT 04/06/2025 9:20 AM CDT Xochitl Schilling DO CHEMISTRY ORDERABLES F inal Result Performing Organization Address City/[facility]/ZIP Code Phone Number [facility] [phone] [place] [address] [address] * URINE CULTURE, W/GBS SUSCEPTIBILITIES (04/05/2025 1:37 PM CDT) CULTURE, URINE, , W/GBS SUSCEPTIBILITIES SEE NOTE [facility] Comment: CULTURE, URINE, , W/GBS SUSCEPTIBILITIES Micro Number: [id number] Test Status: Final Specimen Source: Urnie Specimen Quality: Adequate Result: No Growth Test Performed at: [place] [address] [place] [address] Donta Joshua Urine URINE SPECIMEN OBTAINED BY CLEAN CATCH PROCEDURE / Unknown 04/05/2025 1:37 PM CDT 04/05/2025 1:37 PM CDT Xochitl Schilling DO MICROBIOLOGY - GENERAL ORDERABLES Final Result [facility] [phone] [place] [address] [place] [address] * GC/CHLAMYDIA, UROGENITAL (04/05/2025 1:32 PM CDT) CHLAMYDIA TRACHOMATIS RNA, TMA, UROGENITAL NOT DETECTED NOT DETECTED [facility] NEISSERIA GONORRHOEAE RNA, TMA, UROGENITAL NOT DETECTED NOT DETECTED [facility] COMMENT INFECTIOUS DISEASE [facility] Comment: The analytical performance characteristics of this assay, when used to test SurePath(TM) specimens have been determined by [facility]. The modifications have not been cleared or approved by the FDA. This assay has been validated pursuant to the CLIA regulations and is used for clinical purposes. For additional information, please refer to https://education.Events Core/faq/AYG647 (This link is being provided for information/ educational purposes only.) FASTING:NO FASTING: NO Test Performed at: [place] [address] [address] Donta Joshua MD Genital (Urine, 1st catch) 04/05/2025 1:32 PM CDT 04/05/2025 1:33 PM CDT Xochitl Schilling DO MICROBIOLOGY - GENERAL ORDERABLES Final Result [facility] [phone] [facility] [address] [phone] from Last 3 Months Insurance [facility] BLUE ACCESS/TRUE BLUE PPO
[2025-04-07 14:32] LABS: Hematocrit 35.0 % (37.0-47.0); Hemoglobin 11.2 g/dL (12.0-15.0); Immature Granulocyte Percent A 0.2 % (0-0.5); Lymphocytes Absolute Auto 2.03 K/mm3 (0.9-3.2); Mean Corpuscular HGB Conc 32.0 g/dl (32-36); Mean Corpuscular Hemoglobin 30.2 pg (26-34); Mean Corpuscular Volume 94.3 fl (80-100); Nucleated Red Blood Cells Absolute Auto 0.000 K/mm3 (0.0-0.012); Nucleated Red Blood Cells Perc 0.0 % (0.0-0.2); Platelet Count Result 269 k/mm3 (150-375); Red Blood Count 3.71 M/mm3 (4.2-5.4); White Blood Count 4.9 K/mm3 (4.5-10.0)
[2025-04-07 14:40] LABS: Add Urine Microscopic? YES; Alanine Aminotransferase 28 U/L (6-35); Albumin Level 4.3 g/dL (3.5-5.1); Alkaline Phosphatase 33 U/L (38-126); Anion Gap 6 mmol/L (4-12); Appearance Urine Clear (Clear); Aspartate Amino Transferase 33 U/L (14-36); Bilirubin,Total 0.1 mg/dL (0.2-1.3); Blood Urea Nitrogen 9 mg/dL (7-17); Calcium 9.6 mg/dL (8.4-10.2); Carbon Dioxide 24 mmol/L (22-30); Chloride 106 mmol/L (98-107); Estimated CRCL calculation 87 ml/min; Estimated Glomerular Filt Rate > 60; Glucose 119 mg/dL (65-110); Glucose Urine UA Negative (Negative); Leukocyte Esterase Ur Negative LEU/UL (Negative); Nitrate Urine Negative (Negative); Non Pathogenic Casts 0-2; Potassium 3.8 mmol/L (3.4-5.0); Sodium 136 mmol/L (137-145); Specific Grav Ur 1.024 (1.001-1.035); Total Protein 7.7 g/dL (6.3-8.2)
[2025-04-07 14:50] LABS: INR 1.0; Partial Thromboplastin Time 23.0 Seconds (22.3-36.8); Prothrombin Time 12.8 Seconds (11.1-14.7)
[2025-04-07 14:56] LABS: Beta HCG Quantitative 679.36 mIU/ML
--- NOTE | 2025-04-07 16:34 | ED_ITS ---
HPI - General Adult General Chief complaint: Vaginal Bleeding Stated complaint: vaginal bleeding, 6 weeks Time Seen by Provider: 04/07/25 13:58 History of Present Illness HPI narrative: Patient is a 35-year-old female who presents ER with vaginal bleeding. Reports she had a positive test 2 weeks ago. States he started having some spotting on 03/30/2025. On 04/05/2025 she was started on Lovenox due to her history of DVT by her crayon sawyer Dr. Schilling. She has had increased bleeding since then. No significant pelvic cramping. No large clots. She soaks a pad overnight. No fevers or chills. Related Data Home Medications ?Medication ?Instructions ?Recorded ?Confirmed ?Last Taken ?Type No Home Medications 04/20/24 04/20/24 Unknown History Allergies Allergy/AdvReac Type Severity Reaction Status Date / Time oral contraceptive pill AdvReac Other Uncoded 04/07/25 13:34 Review of Systems 2 Review of Systems: All systems reviewed & are unremarkable except as noted in HPI and below Constitutional: Constitutional: Reports no additional constitutional complaints Cardiovascular: Cardiovascular: Reports no additional cardiovascular complaints Respiratory: Respiratory: Reports no additional respiratory complaints Gastrointestinal: Gastrointestinal: Reports no additional gastrointestinal complaints Genitourinary: Genitourinary: Reports no additional female genitourinary complaints [facility] Past Medical History Medical History Attention deficit disorder History of blood clots when on OCP History of genital warts Surgical History Surgical History [place] teeth removed Family History Family History Mother Blood clot in vein Hypertension Social History Social History Smoking status: Light tobacco smoker Tobacco type: e-cigarettes/vaping Alcohol intake: current Substance use: never Lack of Transportation: No Lack of Food: Never True Current Housing: I Have Housing Concerned About Future Housing: No Difficulty Paying Gas/Electric Bills: No Difficulty Paying for Meds: No Currently Unemployed: No Education: Master's Degree or Higher Difficulty w/ Childcare or Family Care: No Living arrangements: with family Occupation/Education: occupation Gender identity (if verbalized by the patient): Female Sexual Orientation (if Verbalized by the Patient): Straight or Heterosexual Spiritual care concerns: Yes Exam 2 Narrative: GENERAL: Well-appearing, well-nourished, and in no acute distress. HEAD: Normocephalic, atraumatic. ENT: Mucous membranes moist. CHEST: Clear to auscultation. No respiratory distress. HEART: Regular rate and rhythm. Normal peripheral pulses. ABDOMEN: Soft, nontender, nondistended. : Normal external genital exam. Speculum exam with closed office with dark blood and no cervical erythema. No vaginal discharge. EXTREMITIES: Normal range of motion. No edema. SKIN: Warm, dry, no rash. NEURO: Alert and oriented x3. PSYCH: Normal mood and affect. Course Course Emergency Course: Patient resting comfortably poured educated on lab and imaging results. Her blood test is positive but we do not see a gestational sac. Most likely she has had miscarriage but she is still technically . I have attempted to contact her OB Dr. Schilling. I have not received a response and patient is very anxious to go. Patient will need to try to get 48 hour follow- up blood work to confirm that her beta-hCG is trending downward and she has verbalized understanding of this. Patient be discharged. Vital Signs Vital signs: Vital Signs Temperature 97.2 F L 04/07/25 13:32 Pulse Rate 80 04/07/25 13:32 Respiratory Rate 16 04/07/25 13:32 Blood Pressure 118/72 04/07/25 13:32 Pulse Oximetry 98 04/07/25 13:32 Temperature 97.2 F L 04/07/25 13:32 Pulse Rate 80 04/07/25 13:32 Respiratory Rate 16 04/07/25 13:32 Blood Pressure 118/72 04/07/25 13:32 Pulse Oximetry 98 04/07/25 13:32 Medical Decision Making Vital Signs Vital Signs: Vital Signs Temperature 97.2 F L 04/07/25 13:32 Pulse Rate 80 04/07/25 13:32 Respiratory Rate 16 04/07/25 13:32 Blood Pressure 118/72 04/07/25 13:32 Pulse Oximetry 98 04/07/25 13:32 Temperature 97.2 F L 04/07/25 13:32 Pulse Rate 80 04/07/25 13:32 Respiratory Rate 16 04/07/25 13:32 Blood Pressure 118/72 04/07/25 13:32 Pulse Oximetry 98 04/07/25 13:32 Lab Data 04/07/25 14:22 04/07/25 14:22 Labs: Lab Results 04/07/25 Range/Units 14:22 WBC 4.9 (4.5-10.0) K/mm3 RBC 3.71 L (4.2-5.4) M/mm3 Hgb 11.2 L (12.0-15.0) g/dL Hct 35.0 L (37.0-47.0) % MCV 94.3 (80-100) fl MCH 30.2 (26-34) pg MCHC 32.0 (32-36) g/dl RDW 14.6 H (11.5-14.5) % Plt Count 269 (150-375) k/mm3 MPV 8.8 (7.4-10.4) fl Immature Gran % (Auto) 0.2 (0-0.5) % Neut % (Auto) 51.4 (45.5-73.1) % Lymph % (Auto) 41.1 (18.3-44.2) % [place] % (Auto) 6.1 (2.6-8.5) % Eos % (Auto) 0.6 (0-4.4) % Baso % (Auto) 0.6 (0.2-1.2) % Lymph # (Auto) 2.03 (0.9-3.2) K/mm3 [place] # (Auto) 0.3 (0.1-0.6) K/mm3 Eos # (Auto) 0.0 (0-0.3) K/mm3 Baso # (Auto) 0.0 (0.0-0.1) K/mm3 Abs Immat Gran (auto) 0.01 (0.00-0.031) K/mm3 Absolute Neuts (auto) 2.5 (1.3-6.7) K/mm3 Absolute Nucleated RBC 0.000 (0.0-0.012) K/mm3 Nucleated RBC % 0.0 (0.0-0.2) % PT 12.8 (11.1-14.7) Seconds INR 1.0 APTT 23.0 (22.3-36.8) Seconds Sodium 136 L (137-145) mmol/L Potassium 3.8 (3.4-5.0) mmol/L Chloride 106 (98-107) mmol/L Carbon Dioxide 24 (22-30) mmol/L Anion Gap 6 (4-12) mmol/L BUN 9 (7-17) mg/dL Creatinine 0.78 (0.7-1.0) mg/dL Estim Creat Clear Calc 87 ml/min Estimated GFR > 60 (59 - ) Glucose 119 H (65-110) mg/dL Calcium 9.6 (8.4-10.2) mg/dL Total Bilirubin 0.1 L (0.2-1.3) mg/dL AST 33 (14-36) U/L ALT 28 (6-35) U/L Alkaline Phosphatase 33 L (38-126) U/L Total Protein 7.7 (6.3-8.2) g/dL Albumin 4.3 (3.5-5.1) g/dL Beta HCG, Quant 679.36 mIU/ML Urine Color Yellow (Yellow) Urine Appearance Clear (Clear) Urine pH 6.5 (5.0-9.0) Ur Specific [place] 1.024 (1.001-1.035) Urine Protein Negative (Negative) mg/dL Urine Glucose (UA) Negative (Negative) mg/dL Urine Ketones Trace H (Negative) mg/dL Ur Blood (Man) 2+ H (Negative) Urine Nitrate Negative (Negative) Urine Bilirubin Negative (Negative) Urine Urobilinogen 0.2 (<2.0) mg/dL Leukocyte Esterase Rfl Negative (Negative) GAUDENCIO/UL Urine RBC 11-20 H (0-2) /hpf Urine WBC 0-5 (0-3) /hpf Ur Squamous Epith Cells None seen (Few) /hpf Urine Bacteria None seen /hpf Urine Casts 0-2 Blood Type B Positive Antibody Screen Negative Doses of RhIg Required 0 Imaging Data Radiologist's impression: ITS Impressions Ultrasound 04/07/25 15:33 IMPRESSION: No intrauterine gestational sac seen. Discharge Plan Discharge Clinical Impression: Threatened miscarriage Patient Disposition: Home Condition: Stable Instructions: Threatened Miscarriage (ED) Additional Instructions: Return to the emergency department if you develop severe abdominal pain, severe nausea and vomiting to the point where you are unable to keep down fluids, if you develop chest pain or difficulty breathing, blood in your stool, dizziness or fainting, or if you develop any other new or concerning symptoms as these could be signs of more serious medical illness. Try to stay well hydrated. Your beta hCG level was 639. Patient Language: Nepali Prescriptions: No Action No Home Medications Follow-up/Referrals: UNKNOWN,DOCTOR [Primary Care Provider] - 2 Weeks
== END 2025-04-07 16:55 | disposition home or self-care (01) ==
PROVIDERS: Emergency Provider Emergency Medicine
DX: O20.0 Threatened abortion (principal); Z3A.00 Weeks of gestation of pregnancy not specified; F17.290 Nicotine dependence, other tobacco product, uncomplicated
CPT/HCPCS: 36415; 76801; 80053; 81001; 84702; 85025; 85461; 85610; 85730; 86850; 86900; 86901; 99284

== ENCOUNTER 2025-06-05 08:52 | Emergency (ER) | payer BC, SELFPAY ==
--- NOTE | ~2025-06-05 | XR_ITS ---
EXAMINATION: XR chest 2V DATE: 06/05/2025 10:08 INDICATION: Intermittent chest pain TECHNIQUE: PA and lateral views of the chest were obtained. COMPARISON: Chest radiograph and CT dated 05/25/21 FINDINGS: The lungs are clear with no focal airspace opacities, pulmonary edema, pleural effusion or pneumothorax. The cardiomediastinal silhouette is normal. Visualized bones and soft tissues are unremarkable. IMPRESSION: 1. Normal chest radiograph. Reviewed, dictated and finalized at location A. IMPRESSION: 1. Normal chest radiograph.
--- OUTSIDE RECORDS SUMMARY | 2025-06-05 08:54 | XMS_ITS | Encounter Summary ---
Author Organization [facility] Address [address] [place] [address] Care Team Providers Care Benefit Authorizer Name Role Phone Unavailable Primary Care Provider Unavailabl e Encounter Details Date Type Department Care Team (Late st Contact Info) Description 05/20/2025 Results Follow-Up [facility] CASH CONTROLLER - [address] [address] Xochitl Schilling, [address] [place] [address] HCG QUANTITATIVE, BLOOD Social History Tobacco Use Types Packs/Day Years Used Date Smoking Tobacco: Former Cigars Smokeless Tobacco: Never Alcohol Use Standard Drinks/Week Comments Not Currently 0 (1 standard drink = 0.6 oz pur e alcohol) Feeling Safe Answer Date Recorded Are you in a relationship wi th someone who hurts you emotionally and/or physically? No 04/10/2025 Estimated Date of Delivery Comme nts Yes 11/30/2025 Based on last me nstrual period of 02/23/2025 (Exact Date) Sex and Gender Information Value Date Recorded Sex Assigned at Female 04/07/2025 9:06 AM CDT Legal Sex Female 9:54 AM CDT Gender Identity Female 04/07/2025 9:06 AM CDT Sexual Orientation Not on file documented as of this encounter Plan of Treatment Not on file documented as of this encounter Visit Diagnoses Not on filedocumented in this encounter
--- OUTSIDE RECORDS SUMMARY | 2025-06-05 08:54 | XMS_ITS | Encounter Summary ---
Author Organization [facility] Address [address] [place] [address] Care Team Providers Care Inspection Engineer Name Role Phone Unavailable Primary Care Provider Unavailabl e Encounter Details Date Type Department Care Team (Late st Contact Info) Description 05/27/2025 Results Follow-Up [facility] MACHINE HOSE CUTTER - [address] [address] Xochitl Schilling, [address] [place] [address] HCG QUANTITATIVE, BLOOD Social History [...]
--- OUTSIDE RECORDS SUMMARY | 2025-06-05 08:54 | XMS_ITS | Clinical Summary ---
Author Organization [facility] Address [address] [place] [address] Phone Care Team Providers Care District Administrative Assistant Name Role Phone Unavailable Primary Care Provider Unavailabl e Allergies No known active allergies Medications enoxaparin (Lovenox) 40 mg/0.4 mL injectionIndica tions:Personal history of DVT (deep vein thrombosis) Inject 0.4 mL (40 mg) by subcutaneous injection every 24 hours. 30 Each 2 Active VIT-IRON FUM-FOLIC AC ORAL Take by mouth. Activ e Active Problems Problem Noted Date Diagnosed Date Left tubal without intrauterine pregna ncy 04/28/2025 Estimated Date of Delivery Comme nts Yes 11/30/2025 Based on last me nstrual period of 02/23/2025 (Exact Date) Encounters Date Type Department Care Team Description 06/03/2025 Results Follow-Up [facility] NEGATIVE ASSEMBLER - [address] [facility] [address] [address] Catrachita Schmid, DO HCG QUANTITATIVE, BLOOD 05/27/2025 Results Follow-Up [facility] NEGATIVE ASSEMBLER - [address] [facility] [address] [address] Catrachita Schmid, DO HCG QUANTITATIVE, BLOOD 05/20/2025 Results Follow-Up [facility] NEGATIVE ASSEMBLER - [address] [facility] [address] [address] Catrachita Schmid Cotjamila, DO HCG QUANTITATIVE, BLOOD 05/19/2025 External Device Data STL ABSTRACTION Provider, Abstract 05/13/2025 Results Follow-Up [facility] NEGATIVE ASSEMBLER - [address] [facility] [address] [place] [phone] Catrachita Schmid Cotjamila, DO HCG QUANTITATIVE, BLOOD 05/11/2025 External Device Data STL ABSTRACTION Provider, Abstract 05/11/2025 External Device Data STL ABSTRACTION Provider, Abstract 05/11/2025 External Device Data STL ABSTRACTION Provider, Abstract 05/10/[address] [facility] NEGATIVE ASSEMBLER - [address] [place] [address] [address] Catrachita Schmid Coton, DO Left tubal without intrauterine 05/06/2025 Results Follow-Up [facility] NEGATIVE ASSEMBLER - [address] [facility] [address] [place] [phone] Catrachita Schmid, DO HCG QUANTITATIVE, BLOOD 05/06/[address] [facility] Women's Health Clinical Support [address] [place] [address] [place] [address] Barbara Lang RN Follow Up 05/05/2025 External Device Data STL ABSTRACTION Provider, Abstract 05/05/[address] [facility] NEGATIVE ASSEMBLER - [address] [place] [address] [address] Catrachita Schmid Cothron, DO Left tubal without intrauterine 05/04/[address] [facility] NEGATIVE ASSEMBLER - [address] [place] [address] [place] [address] Catrachita Schmid Cothron, DO Left tubal without intrauterine 05/03/[address] [facility] NEGATIVE ASSEMBLER - [address] [place] [address] [address] Tonie, Adriena Cothron, DO Left tubal without intrauterine 04/28/2025 1:15 PM CDT Office [facility] NEGATIVE ASSEMBLER - [address] [facility] [place] [address] [phone] Catrachita Schmid Justa, Left tubal without intrauterine (Primary Dx) 04/28/2025 11:08 AM CDT - 04/28/2025 11:59 PM CDT Hospital Encounter [address] [place] [address] Tonie Catrachita Marr, DO Discharge Disposition: Home or Self Care 04/28/2025 10:58 AM CDT - 04/28/2025 11:59 PM CDT Hospital Encounter [facility] Laboratory Services [facility] [address] [place] [address] Tonie Catrachita Marr, DO Discharge Disposition: Home or Self Care 04/28/2025 9:30 AM CDT Ancillary Procedure [facility] NEGATIVE ASSEMBLER - [address] [facility] [place] [address] [address] Missed menses 04/21/2025 3:30 [address] Video [address] [facility] NEGATIVE ASSEMBLER - [address] [facility] [place] [address] [address] Tonie Catrachita Marr, DO Vaginal bleeding in , first trimester (Primary Dx) 04/20/2025 Telephone [facility] Clinical Support [id number] [address] Ben Burr RN Question 04/19/2025 Results Follow-Up [facility] NEGATIVE ASSEMBLER - [address] [facility] [address] [place] [address] TonieCatrachita, HCG QUANTITATIVE, BLOOD 04/19/2025 Telephone [facility] Clinical Support [address] [address] Sharon Souza RN Follow Up 04/14/2025 External Device Data STL ABSTRACTION Provider, Abstract 04/14/2025 External Device Data STL ABSTRACTION Provider, Abstract 04/14/2025 External Device Data STL ABSTRACTION Provider, Abstract 04/14/2025 External Device Data STL ABSTRACTION Provider, Abstract 04/10/2025 8:30 PM CDT Ancillary Procedure [facility] Obstetrics Emergency Department [address] [place] [address] 04/10/2025 6:31 PM CDT - 04/10/2025 9:55 PM CDT Emergency [facility] Obstetrics Emergency Department [address] [place] [address] of unknown anatomic location (Primary Dx); Vaginal bleeding in Discharge Disposition: Home or Self Care 04/10/2025 Travel 04/08/[address] [facility] Women's Health Clinical Support [id number] [place] [phone] Ben Burr, BRADLEY Follow Up; Medication Question 04/06/2025 External Device Data STL ABSTRACTION Provider, Abstract 04/06/2025 External Device Data STL ABSTRACTION Provider, Abstract 04/06/2025 External Device Data STL ABSTRACTION Provider, Abstract 03/31/2025 10:00 AM CDT Office Visit [facility] NEGATIVE ASSEMBLER - [address] [facility] [place] [address] [address] Catrachita Schmid, Missed menses (Primary Dx); Personal history of DVT (deep vein thrombosis); Vaginal spotting from Last 3 Months Family History Medical History Relation Name Comments Blood Clots Mother Matilde Hypertension Mother Matilde Relation Name Status Comments Mother Matilde Alive Social History Tobacco Use Types Packs/Day Years Used Date Smoking Tobacco: Former Cigars Smokeless Tobacco: Never Tobacco Cessation:Counseling Given: Not Answered Alcohol Use Standard Drinks/Week Comments Not Currently [...] Sign Reading Time Taken Comments Blood Pressure 128/72 04/28/2025 10:17 AM CDT Pulse 85 04/10/2025 6:00 PM CDT Temperature 36.8 C (98.2 F) 04/10/2025 6:00 PM CDT Respiratory Rate 14 04/28/2025 10:1 7 AM CDT Oxygen Saturation 99% 04/28/2025 9:42 AM CDT Inhaled Oxygen Concentration - - Weight 79.8 kg (175 lb 14.8 oz) 025 12:24 PM CDT Height 157.5 cm (5' 2.01) 04/28/2025 1 2:24 PM CDT Body Mass Index 32.17 04/28/2025 12:24 PM CDT Plan of Treatment Health Maintenance Due Date Last Done Comments DTAP/TDAP/TD VACCINES (1 - Tdap) 2010 HEPATITIS B VACCINES (1 of 3 - 19+ 3-dose series) 02/28 HPV/Cotest (21-29) 2012 HPV VACCINES (1 - 3-dose SCDM series) 2018 CERVICAL CANCER SCREENING 2021 HPV/Cotest (30-65) 2021 PAP SMEAR 2021 Preventative Visit- Commercial 09/30/2024 INFLUENZA VACCINE (#1) 2025 RSV VACCINE (60+ or ) (1 - Risk 1-dose series) 10/05/2025 Procedures Procedure Name Priority Date/Time Associated Diagnosis Comments HCG QUANTITATIVE, BLOOD Routine 06/02/20 25 12:31 PM CDT Left tubal without intrauterine HCG QUANTITATIVE, BLOOD Routine 05/26/20 10:08 AM CDT Left tubal without intrauterine HCG QUANTITATIVE, BLOOD Routine 05/19/20 3:32 PM CDT Left tubal without intrauterine HCG QUANTITATIVE, BLOOD Routine 05/12/20 8:42 AM CDT Left tubal without intrauterine HCG QUANTITATIVE, BLOOD Routine 05/05/20 12:07 PM CDT Left tubal without intrauterine HCG QUANTITATIVE, BLOOD Routine 05/03/20 11:08 AM CDT Left tubal without intrauterine HCG QUANTITATIVE, BLOOD Stat 04/28/20 11:04 AM CDT Left tubal without intrauterine COMPREHENSIVE METABOLIC PANEL Stat 04/28/2025 11:03 AM CDT Left tubal without intrauterine CBC WITH DIFFERENTIAL Stat 04/28/2025 11:03 AM CDT Left tubal without intrauterine US OB TRANSVAGINAL Routine 04/28/2025 9: 41 AM CDT Missed menses HCG QUANTITATIVE, BLOOD Routine 04/22/20 8:42 AM CDT Vaginal bleeding in , first trimester HCG QUANTITATIVE, BLOOD Routine 04/20/20 9:04 AM CDT Vaginal bleeding in , first trimester HCG QUANTITATIVE, BLOOD Routine 04/12/20 8:27 AM CDT of unknown anatomic location Vaginal bleeding in US OB TRANSVAGINAL Stat 04/10/2025 9: 19 PM CDT HCG QUANTITATIVE, BLOOD Stat 04/10/20 7:00 PM CDT PROGESTERONE Routine 04/08/2025 3:09 PM CDT Vaginal bleeding in , first trimester HCG QUANTITATIVE, BLOOD Routine 07/10/20 25 3:09 PM CDT Vaginal bleeding in , first trimester OBSTETRIC PANEL Routine 04/06/2025 9:19 AM CDT Missed menses TSH REFLEXIVE Routine 04/06/2025 9:19 AM CDT Missed menses GLUCOSE TOLERANCE 1 HR GESTATIONAL Routine 04/06/2025 9:19 AM CDT Missed menses URINE CULTURE, W/GBS SUSCEPTIBILITIES Routine 04/05/2025 1:37 PM CDT Missed menses GC/CHLAMYDIA, UROGENITAL Routine 025 1:32 PM CDT Missed menses POC , URINE Routine 03/31/2025 11:00 AM CDT Missed menses from Last 3 Months Results * HCG QUANTITATIVE, BLOOD (06/02/2025 12:31 PM CDT) Only the most recent of12 resultswithin the time period is included. HCG QUANT, BLOOD 168 mIU/mL Que [facility] Comment: Gestational Age Expected hCG values (mIU/mL) <1 Week: 5-50 1-2 Weeks: 50-500 2-3 Weeks: 100-5000 3-4 Weeks: 500-33783 4-5 Weeks: 1000-44440 5-6 Weeks: [address] 6-8 Weeks: [address] 2-3 Months: [address] The table above provides only a very rough estimate of gestational age and should be used only in conjunction with other methods for establishing gestational age. Much more reliable and accurate estimations of gestational age may be obtained by using LMP or ultrasound. Values from different assay methods may vary. The use of this assay to monitor or to diagnose patients with cancer or any condition unrelated to has not been cleared or approved by the FDA or the space control agent of the assay. Test Performed at: [facility] [address] [place] [address] [facility] Blood 06/02/2025 12:3 1 PM CDT 06/02/2025 12:31 PM CDT Catrachita Schmid DO CHEMISTRY ORDERABLES F inal Result [facility] [phone] [facility] [address] [place] [address] * (ABNORMAL) CBC WITH DIFFERENTIAL (04/28/2025 11:03 AM CDT) WBC 5.4 4.0 - 9.8 K/uL 04/28/2025 11:15 AM CDT [facility] RBC 3.82(L) 3.90 - 4.90 M/uL 04/28/2025 11:15 AM CDT [facility] HEMOGLOBIN 11.7(L) 11.8 - 14.8 g/dL 04/28/2025 11:15 AM CDT [facility] HEMATOCRIT 34.6(L) 35.5 - 44.0 % 04/28/2025 11:15 AM CDT [facility] MCV 90.6 82.0 - 99.0 fL 04/28/2025 11:15 AM CDT [facility] MCH 30.6 27.2 - 32.6 pg 04/28/2025 11:15 AM CDT [facility] MCHC 33.8 31.5 - 35.5 g/dL 04/28/2025 11:15 AM CDT [facility] RDW 13.9 11.5 - 14.5 % 04/28/2025 11:15 AM CDT [facility] RDW-STDEV 46.4 37.1 - 48.7 fL 04/28/2025 11:15 AM CDT [facility] PLATELETS 261 140 - 350 K/uL 04/28/2025 11:15 AM CDT [facility] MPV 8.9(L) 9.3 - 12.4 fL 04/28/2025 11:15 AM CDT [facility] NEUTROPHILS 50 % 04/28/2025 11:15 AM CDT [facility] - . [place] LYMPHOCYTES 38 % 04/28/2025 11:15 AM CDT [facility] MONOCYTES 10 % 04/28/2025 11:15 AM CDT [facility] EOSINOPHILS 1 % 04/28/2025 11:15 AM CDT [facility] . [place] BASOPHILS 1 % 04/28/2025 11:15 AM CDT [facility] - . [place] IMMATURE GRANULOCYTES 0 % 04/28/2025 11:15 AM CDT [facility] NEUTROPHIL ABSOLUTE 2.73 1.90 - 7.00 K/uL 04/28/2025 11:15 AM CDT [facility] - . [place] LYMPHOCYTE ABSOLUTE 2.08 0.70 - 4.50 K/uL 04/28/2025 11:15 AM CDT [facility] - . [place] MONOCYTE ABSOLUTE 0.52 0.10 - 1.30 K/uL 04/28/2025 11:15 AM CDT [facility] EOSINOPHIL ABSOLUTE 0.05 0.00 - 0.70 K/uL 04/28/2025 11:15 AM CDT [facility] BASOPHILS ABSOLUTE 0.03 0.00 - 0.20 K/uL 04/28/2025 11:15 AM CDT [facility] - . [facility] IMMATURE GRANULOCYTES ABSOLUTE 0.01 0.00 - 0.03 K/uL 04/28/2025 11:15 AM T [facility] Blood Venipuncture / Unknown 04/28/2025 11:03 AM CDT 04/28/2025 11:13 AM CDT us Catrachita Schmid DO HEMATOLOGY ORDERABLES Final Result [facility] CLIA# [id number] [address] [facility] [address] [address] * (ABNORMAL) COMPREHENSIVE METABOLIC PANEL (04/28/2025 11:03 AM CDT) [facility] SODIUM 134(L) 136 - 145 mmol/L 04/28/2025 11:54 AM [facility][NOTE 3] [facility] - [facility] POTASSIUM 4.4 3.5 - 5.0 mmol/L 04/28/2025 11:54 AM [facility][NOTE 3] [facility] CHLORIDE 101 98 - 107 mmol/L 04/28/2025 11:54 AM [facility][NOTE 3] [facility] CO2 23 22 - 29 mmol/L 04/28/2025 11:54 AM [facility][NOTE 3] [facility] [employer] [facility] - [facility] [place] CALCIUM 10.2 8.6 - 10.2 mg/dL 04/28/2025 11:54 AM [facility][NOTE 3] [employer] [facility] - . [place] BUN 9 6 - 20 mg/dL 04/28/2025 11:54 AM [facility][NOTE 3] [facility] - . [facility] CREATININE 0.74 0.51 - 0.95 mg/dL 04/28/2025 11:54 AM [facility][NOTE 3] [facility] - . [place] GLUCOSE 91 74 - 99 mg/dL 04/28/2025 11:54 AM [facility] - . [place] TOTAL PROTEIN 7.8 6.7 - 8.6 g/dL 04/28/2025 11:54 AM [facility][NOTE 3] [facility] ALBUMIN 4.5 3.5 - 5.2 g/dL 04/28/2025 11:54 AM [facility][NOTE 3] [facility] [place] BILIRUBIN TOTAL 0.2 0.0 - 1.2 mg/dL 04/28/2025 11:54 AM [facility][NOTE 3] [facility] - . [place] ALKALINE PHOSPHATASE 52 35 - 104 U/L 04/28/2025 11:54 AM [employer] [facility] - . [place] AST 34(H) <33 U/L 04/28/2025 11:54 AM [facility] - . [place] ALT 36(H) <34 U/L 04/28/2025 11:54 AM [facility][NOTE 3] [facility] - . [facility] GFR >60 >=60 mL/min/1.7 3 sq meter 04/28/2025 11:54 AM [facility][NOTE 3] [facility] . [place] Comment:eGFR calculated with 2020 CKD-EPI equation. Vegetarian diet, extremely high or low muscle mass, and may affect results. Cystatin C with Glomerular Filtration Rate is a suitable alternative for these patients. ANION GAP 10 8 - 16 mmol/L 04/28/2025 11:54 AM CDT [facility] [employer] [facility] Blood Venipuncture / Unknown 04/28/2025 11:03 AM CDT 04/28/2025 11:24 AM CDT Narrative [facility] [employer] [facility] - 04/28/2025 11:54 AM CDT Samples containing indocyanine green cause interferences on Total and/or Direct Bilirubin and must not be measured. us Catrachita Schmid DO CHEMISTRY ORDERABLES F inal Result [facility] [employer] [facility] CLIA# [id number] [address] [place] [address] * US OB TRANSVAGINAL (04/28/2025 9:41 AM CDT) Only the most recent of2 resultswithin the time period is included. Anatomical Region Laterality Modality Pelvis Ultrasound 04/28/2025 9:17 AM CDT Narrative 04/28/2025 10:02 AM CDT [facility]/CLINIC FIRST TRIMESTER TV/TA ----- Pat. Name: GIULIA MIDDLETON Study Date: 04/28/2025 9:17am Pat. NO: [id number] Referring MD: CATRACHITA SCHMID DO Site: [address] Early Childhood Specialist: Radha Fountain RDMS : 1990 Age: 35 ----- INDICATION ----- Confirm Viability First Trimester Bleeding earlier in CODING ----- Diagnoses O20.9: Hemorrhage in early , unspecified O36.80X0: with inconclusive viability Procedures 60981: Ultrasound, uterus, real time with image documentation HISTORY ----- OB History 1 MATERNAL ASSESSMENT ----- Physical Exam Initial weight 79 kg, 174 lb. Initial BMI 31.83 kg/m METHOD ----- Transvaginal ultrasound examination. View: Good view ----- Number of fetuses: none DATING ----- Method of dating: based on the LMP LMP on: 02/23/2025 GA by LMP 9 w + 1 d TYRONE by LMP: 11/30/2025 Assigned: based on the LMP, selected on 04/28/2025 Assigned GA 9 w + 1 d Assigned TYRONE: 11/30/2025 ASSESSMENT ----- Gestational sac: not visualized Ectopic Localization: right tube Total size 22.6 mm x 15.7 mm x 2.3 mm Color Doppler: increased vascularity MATERNAL STRUCTURES ----- Uterus Long 68 mm x ap 49 mm x tr 52 mm. Vol 90.3 cm Position: retroverted Endometrial thickness, total 6.6 mm Right Ovary Size 27 mm x 27 mm x 18 mm. Vol 7.0 cm Appearance: appears normal in size, shape, structure and morphology. Right Tube Size 22.6 mm x 15.7 mm x 23.9 mm Appearance: Tubo-ovarian mass Left Ovary Size 17 mm x 22 mm x 16 mm. Vol 3.0 cm Appearance: appears normal in size, shape, structure and morphology IMPRESSION ----- Ultrasound performed due to of unknown location with inappropriately rising bHCG levels. Most recent [facility] 8471. 1. Retroverted uterus with thickened endometrium measuring 6.58 mm. Decidual reaction is noted without evidence of a gestational sac. 2. Left ovary appears normal. 3. Right ovary appears normal. In the right adnexa, there is a 22.6 x 15.7 x 23.9 mm mass that is separate from the ovary (positive sliding sign). Ring of vasculature is noted around the mass. This is concerning for a right adnexal ectopic. 4. There is no free fluid around the mass or in the pelvis. Given inappropriately rising bHCG levels and right adnexal mass, findings are consistent with a right adnexal ectopic. Recommendations: - Management of right ectopic . Findings discussed with Dr. Schmid who sees the patient following this ultrasound. - Further ultrasounds as clinically indicated. Thank you for inviting us to participate in your patient's care. Procedure Note Fiordaliza Powell MD - 04/28/2025 [facility]/CLINIC FIRST TRIMESTER TV/TA ----- Pat. Name:Rohith MIDDLETON Date:04/28/2025 9:17am Pat. NO: [id number] :CATRACHITA SCHMID DO Site:[place] [id number]:Radha Fountain RDMS :1990Age:35 ----- INDICATION ----- Confirm Viability First Trimester Bleeding earlier inpregnancy CODING ----- Diagnoses O20.9: Hemorrhage in early ,unspecified O36.80X0: with inconclusive fetalviability Procedures 16096: Ultrasound, uterus, real time withimage documentation HISTORY ----- OB History 1 MATERNAL ASSESSMENT ----- Physical Exam Initial weight 79 kg, 174 lb. Initial BMI 31.83kg/m METHOD ----- Transvaginal ultrasound examination. View: Good view ----- Number of fetuses: none DATING ----- Method of dating:based on the LMP LMP on:02/23/2025 GA by LMP9 w + 1 d TYRONE by LMP:11/30/2025 Assigned:based on the LMP, selected on 04/28/2025 Assigned GA9 w + 1 d Assigned TYRONE:11/30/2025 ASSESSMENT ----- Gestational sac: not visualized Ectopic Localization: right tube Total size 22.6 mm x 15.7 mm x 2.3 mm Color Doppler: increased vascularity MATERNAL STRUCTURES ----- Uterus Long 68 mm x ap 49 mm x tr 52 mm. Vol 90.3 cm Position: retroverted Endometrial thickness, total 6.6 mm Right Ovary Size 27 mm x 27 mm x 18 mm. Vol 7.0 cm Appearance: appears normal in size, shape,structure and morphology. Right Tube Size 22.6 mm x 15.7 mm x 23.9 mm Appearance: Tubo-ovarian mass Left Ovary Size 17 mm x 22 mm x 16 mm. Vol 3.0 cm Appearance: appears normal in size, shape,structure and morphology IMPRESSION ----- Ultrasound performed due to of unknown location withinappropriately rising bHCG levels. Most recent bHCG 8471. 1. Retroverted uterus with thickened endometrium measuring 6.58 mm.Decidual reaction is noted without evidence of a gestational sac. 2. Left ovary appears normal. 3. Right ovary appears normal. In the right adnexa, there is a 22.6 x 15.7x 23.9 mm mass that is separate from the ovary (positive sliding sign). Ring of vasculature is noted around the mass.This is concerning for a right adnexal ectopic. 4. There is no free fluid around the mass or in the pelvis. Given inappropriately rising bHCG levels and right adnexal mass, findingsare consistent with a right adnexal ectopic. Recommendations: - Management of right ectopic . Findings discussed with who sees the patient following this ultrasound. - Further ultrasounds as clinically indicated. Thank you for inviting us to participate in your patient's care. us Shaegeraldine Justa Schmid DO US ORDERABLES Final Result * PROGESTERONE (04/08/2025 3:09 PM CDT) PROGESTERONE 3.8 ng/mL [email or web address] Comment: Reference Ranges Female Follicular Phase < 1.0 Luteal Phase 2.6-21.5 Post menopausal < 0.5 1st Trimester 4.1-34.0 2nd Trimester 24.0-76.0 3rd Trimester 52.0-302.0 Test Performed at: [facility] [address] [address] [id number] [employer] [facility] Blood 04/08/2025 3:09 PM CDT 04/08/2025 3:10 PM CDT Thalia Terra Francisco DO CHEMISTRY ORDERABLES Final Resu lt [facility] [phone] [place] [address] [address] [address] * GLUCOSE TOLERANCE 1 HR GESTATIONAL (04/06/2025 9:19 AM CDT) GLUCOSE 1 HR OBSTETRIC 107 <135 mg/dL [facility] Comment: FASTING:YES FASTING: YES Test Performed at: [facility] [place] [address] [address] [phone] [facility] Vo Blood 04/06/2025 9:19 AM CDT 04/06/2025 9:20 AM CDT Catrachita Schmid DO CHEMISTRY ORDERABLES F inal Result [facility] [phone] [place] [address] [address] [place] [address] * TSH REFLEXIVE (04/06/2025 9:19 AM CDT) TSH 1.15 mIU/L [facility] Comment: Reference Range > or = 20 Years 0.40-4.50 Ranges First trimester 0.26-2.66 Second trimester 0.55-2.73 Third trimester 0.43-2.91 FASTING:YES FASTING: YES Test Performed at: [place] [address] [place] [address] [facility] [facility] Blood 04/06/2025 9:19 AM CDT 04/06/2025 9:20 AM CDT us Catrachita Schmid DO CHEMISTRY ORDERABLES F inal Result [facility] [phone] [place] [address] [place] [address] * OBSTETRIC PANEL WITH HIV (04/06/2025 9:19 AM CDT) WBC 4.1 3.8 - 10.8 Thousand /uL [facility] RBC 3.96 3.80 - 5.10 Million/ uL [facility] HEMOGLOBIN 12.0 11.7 - 15.5 g/dL [facility] HEMATOCRIT 37.5 35.0 - 45.0 % [facility] MCV 94.7 80.0 - 100.0 fL [facility] MCH 30.3 27.0 - 33.0 pg [facility] [facility] MCHC 32.0 32.0 - 36.0 g/dL [facility] Comment: For adults, a slight decrease in the calculated MCHC value (in the range of 30 to 32 g/dL) is most likely not clinically significant; however, it should be interpreted with caution in correlation with other red cell parameters and the patient's clinical condition. RDW 14.1 11.0 - 15.0 % [facility] PLATELETS 301 140 - 400 Thousand /uL [facility] MPV 9.7 7.5 - 12.5 fL [facility] NEUTROPHIL ABSOLUTE 1,919 1,500 - 7,800 cells/uL [facility] LYMPHOCYTE ABSOLUTE 1,779 850 - 3,900 cells/uL [facility] MONOCYTE ABSOLUTE 340 200 - 950 cells/uL [facility] EOSINOPHIL ABSOLUTE 41 15 - 500 cells/uL [facility] BASOPHILS ABSOLUTE 21 0 - 200 cells/uL [facility] NEUTROPHIL 46.8 % [facility] LYMPHOCYTES 43.4 % [facility] MONOCYTE 8.3 % [facility] EOSINOPHILS 1.0 % [facility] BASOPHILS 0.5 % [facility] ANTIBODY SCREEN NO ANTIBODIES DETECTED [facility] Comment: Reference range No antibodies detected This assay is a screening test for the detection of red blood cell antibodies. The test is not to be used for pretransfusion screening or for the medical management of an alloimmunized . ABO GROUP B [facility] RH (D) TYPE RH(D) POSITIVE [facility] Comment: For additional information, please refer to http://C[employer]el [employer].Golfshop Online/faq/MXY552 (This link is being provided for informational/ educational purposes only.) RPR NON-REACTIVE NON-REAC TIVE [facility] Comment: No laboratory evidence of syphilis. If recent exposure is suspected, submit a new sample in 2-4 weeks. HEPATITIS B SURFACE AG NON-REACTIVE NON-REAC TIVE [facility] Comment: For additional information, please refer to http://C[employer].Teralytics/faq/NYL213 (This link is being provided for informational/ educational purposes only.) RUBELLA IMMUNE STATUS 2.44 Index [facility] Comment: Index Interpretation ----- <0.90 Not consistent with immunity 0.90-0.99 Equivocal > or = 1.00 Consistent with immunity The presence of rubella IgG antibody suggests immunization or past or current infection with rubella virus. QUEST RESULT [facility] Comment: Quest component Name and Code: HIV FINAL INTERPRETATION [[id number]] HIV Negative HIV-1 antigen and HIV-1/HIV-2 antibodies were not detected. There is no laboratory evidence of HIV infection. HIV-1/2 AG AND AB SCREEN NON-REACTIVE NON-REAC TIVE [facility] HEPATITIS C AB NON-REACTIVE NON-REAC TIVE [facility] Comment: HCV antibody was non-reactive. There is no laboratory evidence of HCV infection. In most cases, no further action is required. However, if recent HCV exposure is suspected, a test for HCV RNA (test code 57021) is suggested. For additional information please refer to http://education.Teralytics/faq/QJL25s0 (This link is being provided for informational/ educational purposes only.) FASTING:YES FASTING: YES Test Performed at: [facility] [address] [facility] [place] [address] Donta SOLARES Blood 04/06/2025 9:19 AM CDT 04/06/2025 9:20 AM CDT Catrachita Schmid DO CHEMISTRY ORDERABLES F inal Result Performing Organization Address City/[facility]/ZIP Co de Phone Number [facility] [phone] [facility] [address] [facility] [place] [address] * URINE CULTURE, W/GBS SUSCEPTIBILITIES (04/05/2025 1:37 PM CDT) CULTURE, URINE, , W/GBS SUSCEPTIBILITIES SEE NOTE [facility] Comment: CULTURE, URINE, , W/GBS SUSCEPTIBILITIES Micro Number: [id number] Test Status: Final Specimen Source: Urnie Specimen Quality: Adequate Result: No Growth Test Performed at: [facility] [address] [address] Donta Joshua Urine URINE SPECIMEN OBTAINED BY CLEAN CATCH PROCEDURE / Unknown 04/05/2025 1:37 PM CDT 04/05/2025 1:37 PM CDT Catrachita Schmid DO MICROBIOLOGY - GENERAL ORDERABLES Final Result [facility] [phone] [facility] [address] [place] [address] * GC/CHLAMYDIA, UROGENITAL (04/05/2025 1:32 PM CDT) Pathologist [facility] CHLAMYDIA TRACHOMATIS RNA, TMA, UROGENITAL NOT DETECTED NOT DETECTED [facility] NEISSERIA GONORRHOEAE RNA, TMA, UROGENITAL NOT DETECTED NOT DETECTED [facility] COMMENT INFECTIOUS DISEASE [facility] Comment: The analytical performance characteristics of this assay, when used to test SurePath(TM) specimens have been determined by [facility]. The modifications have not been cleared or approved by the FDA. This assay has been validated pursuant to the CLIA regulations and is used for clinical purposes. For additional information, please refer to https://education.Teralytics/faq/WVT076 (This link is being provided for information/ educational purposes only.) FASTING:NO FASTING: NO Test Performed at: [facility] [address] [place] [address] Donta Joshua MD Genital (Urine, 1st catch) 04/05/2025 1:32 PM CDT 04/05/2025 1:33 PM CDT Catrachita Schmid DO MICROBIOLOGY - GENERAL ORDERABLES Final Result Performing Organization Address City/State/ZIP Co hi Phone Number [facility] [phone] [facility] [address] [place] [address] * (ABNORMAL) POC , URINE (03/31/2025 11:00 AM CDT) Pathologist [facility] HCG QUAL URINE POC Positive( A) Negative, Indeterminate [facility] NEGATIVE ASSEMBLER INTERNAL KIT QC POC Pass Pass [facility] NEGATIVE ASSEMBLER KIT LOT NUMBER POC [phone] [facility] NEGATIVE ASSEMBLER KIT EXP DATE POC [facility] NEGATIVE ASSEMBLER Urine 03/31/2025 11:0 0 AM CDT us Catrachita Schmid DO POINT OF CARE TESTING Final Result [facility] NEGATIVE ASSEMBLER CLIA# [id number] [address] [facility] [address] [place] [address] from Last 3 Months Insurance [facility] BLUE ACCESS/TRUE BLUE PPO
--- OUTSIDE RECORDS SUMMARY | 2025-06-05 08:54 | XMS_ITS | Clinical Summary ---
Author Organization [facility] Address [address] [place] [address] Care Team Providers Care Belt Polisher Name Role Phone Sola Mills MD Unavailable [phone] Fiordaliza Dennis NP Unavailable [phone] Unknown, Notinfile Primary Care Provider Unavail able Xochitl Schilling DO Unavailable [phone] Allergies No known active allergies Medications dextroamphetami [...] Encounters Date Type Department Care Team Description 05/12/2025 Documentation [facility] Medicine Bone Marrow Transplant [address] [facility] Floor 6 [place] [address] Colton Cunningham MD 05/11/2025 Telephone [facility] Medicine Physicians [facility] Oncology [address] [place] [address] [address] [place] [address] Elvira Pradhan 04/01/2025 Telephone [facility] Physicians [facility] Oncology [address] [place] [address] [address] [place] [address] Colton Cunningham MD 03/31/2025 Patient Self-Triage [facility]/ Physicians [address] [place] [address] Ron, Generic Provider from Last 3 Months Surgical [...] on file Legal Sex Female 7:47 PM [employer] Gender Identity Not on file Sexual Orientation Not on file 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 Not on file Not on file [...] Screening 2009 Regular Well Visit/Exam 18-64 2009 HPV Vaccines (1 - 3-dose SCD M series) 2018 Influenza Vaccine (#1) 2025 Pneumococcal vaccine <65 Aged Out No longer eligible based on patient's age to complete this topic Insurance [employer] [place] [employer] [place] Care Teams Belt Polisher Relationship Specialty Start Date End Date Unknown, Notinfile PCP - General 05/14/23 Sola Mills MD [address] [facility] [address] [place] [address] Referring Physician Obstetrics and Gynecology 07/05/20 Fiordaliza Dennis, TIE LAYER [address] [place] [address] Nurse Practitioner Medical Oncology 05/13/23 Xochitl Schilling DO [address] [place] [address] Consulting Physician Obstetrics and Gynecology 05/11/25
--- OUTSIDE RECORDS SUMMARY | 2025-06-05 08:54 | XMS_ITS | Encounter Summary ---
Author Organization [facility] Address [address] [place] [address] Care Team Providers Care Plexiglas Former Name Role Phone Unavailable Primary Care Provider Unavailabl e Reason for Visit * Reason Onset Date Comments Results 05/13/2025 Encounter Details Date Type Department Care Team (Late st Contact Info) Description 05/13/2025 Results Follow-Up [facility] FLOODPLAIN MANAGER - [facility] [address] [place] [address] Xochitl Schilling, [address] [place] [address] HCG QUANTITATIVE, BLOOD Social History [...] on file documented as of this encounter Miscellaneous Notes * Telephone Encounter - Nini Silverman RN - 05/13/2025 2:06 PM CDT Results and recommendations reviewed with pt. V/u and agreement. Wondering if ok to return to gym. Advised to wait until recommendations received from provider. Bleeding has stopped and denies pain. documented in this encounter Plan of Treatment Not on file documented as of this encounter Visit Diagnoses Not on filedocumented in this encounter
--- OUTSIDE RECORDS SUMMARY | 2025-06-05 08:54 | XMS_ITS | Encounter Summary ---
Author Organization [facility] Address [address] [place] [address] Care Team Providers Care General Freight Agent Name Role Phone Unavailable Primary Care Provider Unavailabl e Encounter Details Date Type Department Care Team (Late st Contact Info) Description 04/19/2025 Results Follow-Up [facility] GROUND SUPPORT EQUIPMENT MECHANIC [facility] [address] [facility] [place] [address] Xochitl Schilling, [address] [place] [address] HCG QUANTITATIVE, BLOOD Social History Tobacco Use Types Packs/Day Years Used Date Smoking Tobacco: Former Cigarettes Smokeless Tobacco: Never Alcohol Use Standard Drinks/Week [...]
--- OUTSIDE RECORDS SUMMARY | 2025-06-05 08:54 | XMS_ITS | Encounter Summary ---
Author Organization [facility] Address [address] [place] [address] Care Team Providers Care Grain Operator Name Role Phone Unavailable Primary Care Provider Unavailabl e Encounter Details Date Type Department Care Team (Late st Contact Info) Description 06/03/2025 Results Follow-Up [facility] BED MANAGER - [address] [address] Xochitl Schilling, [address] [place] [address] HCG QUANTITATIVE, BLOOD Social History [...]
[2025-06-05 09:03] VITALS: BP 114/76; PULSE 64; RESP 18; TEMP 36.9; O2SAT 100
--- NOTE | 2025-06-05 09:06 | ECG_ITS ---
Test Date: 2025-06-05 09:19:29 Measurements Intervals [place] Rate: 62 P: 37 CT: 142 QRS: 39 QRSD: 83 T: 24 QT: 386 QTc: 394 Interpretive Statements SINUS RHYTHM No previous ECG available for comparison Electronically Signed On 06-05-2025 10:54:42 CDT by Ronald Bruce M.D.
[2025-06-05 09:35] LABS: Hematocrit 34.3 % (37.0-47.0); Hemoglobin 11.0 g/dL (12.0-15.0); Immature Granulocyte Percent A 0.4 % (0-0.5); Lymphocytes Absolute Auto 2.37 K/mm3 (0.9-3.2); Mean Corpuscular HGB Conc 32.1 g/dl (32-36); Mean Corpuscular Hemoglobin 29.6 pg (26-34); Mean Corpuscular Volume 92.5 fl (80-100); Nucleated Red Blood Cells Absolute Auto 0.000 K/mm3 (0.0-0.012); Nucleated Red Blood Cells Perc 0.0 % (0.0-0.2); Platelet Count Result 252 k/mm3 (150-375); Red Blood Count 3.71 M/mm3 (4.2-5.4); White Blood Count 5.0 K/mm3 (4.5-10.0)
[2025-06-05 09:35] LABS: BEDSIDEPREGUCG Negative (Negative)
[2025-06-05 09:47] LABS: INR 1.0; Partial Thromboplastin Time 24.2 Seconds (22.3-36.8); Prothrombin Time 13.2 Seconds (11.1-14.7)
[2025-06-05 09:53] LABS: Alanine Aminotransferase 19 U/L (6-35); Albumin Level 4.3 g/dL (3.5-5.1); Alkaline Phosphatase 56 U/L (38-126); Anion Gap 6 mmol/L (4-12); Aspartate Amino Transferase 34 U/L (14-36); Bilirubin,Total 0.3 mg/dL (0.2-1.3); Blood Urea Nitrogen 12 mg/dL (7-17); Calcium 9.5 mg/dL (8.4-10.2); Carbon Dioxide 25 mmol/L (22-30); Chloride 104 mmol/L (98-107); Estimated CRCL calculation 84 ml/min; Estimated Glomerular Filt Rate > 60; Glucose 91 mg/dL (65-110); Lipase 56 U/L (23-300); Potassium 4.2 mmol/L (3.4-5.0); Sodium 135 mmol/L (137-145); Total Protein 7.7 g/dL (6.3-8.2)
[2025-06-05 10:00] LABS: Troponin I < 0.012 ng/mL (0.000-0.034)
[2025-06-05 10:10] VITALS: BP 122/68; PULSE 67; RESP 16; TEMP 36.6; O2SAT 98
--- NOTE | 2025-06-05 10:26 | ED_ITS ---
HPI - General Adult General Chief complaint: Chest Pain Stated complaint: CHEST PAIN X1D Time Seen by Provider: 06/05/25 09:58 History of Present Illness HPI narrative: Patient 35-year-old female who presents emergency department chief complaint of chest pain. Patient reports been having sharp pain in her mid chest patient reports that it is sharp reports worse with inspiration the patient states she had an ectopic was treated with methotrexate about 1 month ago Related Data Allergies Allergy/AdvReac Type Severity Reaction Status Date / Time oral contraceptive pill AdvReac Other Uncoded 04/07/25 13:34 Review of Systems 2 Review of Systems: A 10 system review of systems was completed on the patient and is negative except for what is stated in the HPI. Nursing and ancillary documentation was reviewed. PMFSH Past Medical History Medical History History of blood clots when on OCP Attention deficit disorder History of genital warts Surgical History Surgical History Enterprise teeth removed Family History Family History Mother Blood clot in vein Hypertension Social History Social History Smoking status: Light tobacco smoker Tobacco type: e-cigarettes/vaping Alcohol intake: current Substance use: never Lack of Transportation: No Lack of Food: Never True Current Housing: I Have Housing Concerned About Future Housing: No Difficulty Paying Gas/Electric Bills: No Difficulty Paying for Meds: No Currently Unemployed: No Education: Master's Degree or Higher Difficulty w/ Childcare or Family Care: No Living arrangements: with family Occupation/Education: occupation Gender identity (if verbalized by the patient): Female Sexual Orientation (if Verbalized by the Patient): Straight or Heterosexual Spiritual care concerns: Yes Exam 2 Narrative: GENERAL: Well-appearing, well-nourished, and in no acute distress. HEAD: Normocephalic, atraumatic. EYES: PERRLA and EOMI. ENT: Nares clear, no rhinorrhea or epistaxis. Mucous membranes moist. NECK: Supple. CHEST: Clear to auscultation. No respiratory distress. HEART: Regular rate and rhythm. No murmur heard. Normal peripheral pulses. ABDOMEN: Soft, nontender, nondistended, normal active bowel sounds. EXTREMITIES: Normal range of motion. No edema. SKIN: Warm, dry, no rash. NEURO: No focal deficits. Alert and oriented x3. PSYCH: Normal mood and affect. Course Vital Signs Vital signs: Vital Signs Temperature 36.9 C 06/05/25 09:03 Pulse Rate 64 06/05/25 09:03 Respiratory Rate 18 06/05/25 09:03 Blood Pressure 114/76 06/05/25 09:03 Pulse Oximetry 100 06/05/25 09:03 Oxygen Delivery Room Air 06/05/25 09:03 Temperature 36.9 C 06/05/25 09:03 Pulse Rate 64 06/05/25 09:03 Respiratory Rate 18 06/05/25 09:03 Blood Pressure 114/76 06/05/25 09:03 Pulse Oximetry 100 06/05/25 09:03 Oxygen Delivery Room Air 06/05/25 09:03 Medical Decision Making [facility] Narrative Medical decision making narrative: Differential diagnosis includes pleurisy chest pain, pulmonary embolism, atypical chest pain, Chest x-ray showed no focal infiltrate EKG showed no acute ischemic changes Troponin was negative D-dimer was also negative Patient was given ketorolac in the emergency department Plan will be discharge the patient home on anti-inflammatories Vital Signs Vital Signs: Vital Signs Temperature 36.9 C 06/05/25 09:03 Pulse Rate 64 06/05/25 09:03 Respiratory Rate 18 06/05/25 09:03 Blood Pressure 114/76 06/05/25 09:03 Pulse Oximetry 100 06/05/25 09:03 Oxygen Delivery Room Air 06/05/25 09:03 Temperature 36.9 C 06/05/25 09:03 Pulse Rate 64 06/05/25 09:03 Respiratory Rate 18 06/05/25 09:03 Blood Pressure 114/76 06/05/25 09:03 Pulse Oximetry 100 06/05/25 09:03 Oxygen Delivery Room Air 06/05/25 09:03 Lab Data 06/05/25 09:28 06/05/25 09:28 Labs: Lab Results 06/05/25 06/05/25 Range/Units 09:28 09:35 WBC 5.0 (4.5-10.0) K/mm3 RBC 3.71 L (4.2-5.4) M/mm3 Hgb 11.0 L (12.0-15.0) g/dL Hct 34.3 L (37.0-47.0) % MCV 92.5 (80-100) fl MCH 29.6 (26-34) pg MCHC 32.1 (32-36) g/dl RDW 14.2 (11.5-14.5) % Plt Count 252 (150-375) k/mm3 MPV 8.9 (7.4-10.4) fl Immature Gran % (Auto) 0.4 (0-0.5) % Neut % (Auto) 42.5 L (45.5-73.1) % Lymph % (Auto) 47.8 H (18.3-44.2) % Perry % (Auto) 7.7 (2.6-8.5) % Eos % (Auto) 1.0 (0-4.4) % Baso % (Auto) 0.6 (0.2-1.2) % Lymph # (Auto) 2.37 (0.9-3.2) K/mm3 Perry # (Auto) 0.4 (0.1-0.6) K/mm3 Eos # (Auto) 0.1 (0-0.3) K/mm3 Baso # (Auto) 0.0 (0.0-0.1) K/mm3 Abs Immat Gran (auto) 0.02 (0.00-0.031) K/mm3 Absolute Neuts (auto) 2.1 (1.3-6.7) K/mm3 Absolute Nucleated RBC 0.000 (0.0-0.012) K/mm3 Nucleated RBC % 0.0 (0.0-0.2) % PT 13.2 (11.1-14.7) Seconds INR 1.0 APTT 24.2 (22.3-36.8) Seconds D-Dimer 0.48 (<0.48) ug/mL Sodium 135 L (137-145) mmol/L Potassium 4.2 (3.4-5.0) mmol/L Chloride 104 (98-107) mmol/L Carbon Dioxide 25 (22-30) mmol/L Anion Gap 6 (4-12) mmol/L BUN 12 (7-17) mg/dL Creatinine 0.78 (0.7-1.0) mg/dL Estim Creat Clear Calc 84 ml/min Estimated GFR > 60 (59 - ) Glucose 91 (65-110) mg/dL Calcium 9.5 (8.4-10.2) mg/dL Total Bilirubin 0.3 (0.2-1.3) mg/dL AST 34 (14-36) U/L ALT 19 (6-35) U/L Alkaline Phosphatase 56 (38-126) U/L Troponin I < 0.012 (0.000-0.034) ng/mL Total Protein 7.7 (6.3-8.2) g/dL Albumin 4.3 (3.5-5.1) g/dL Lipase 56 (23-300) U/L POC Urine HCG, Qual Negative (Negative) Discharge Plan Discharge Clinical Impression: Chest pain, Pleurisy Patient Disposition: Home Condition: Stable Instructions: Antibiotic Form, Chest Pain (ED), Pleurisy (ED) Patient Language: Swedish Prescriptions: New diclofenac potassium 50 mg tablet 50 mg PO TID PRN (Reason: pain) Qty: 30 0RF Follow-up/Referrals: Omega Vogt MD [Physician, Family Practice] PHYSICIAN,PLATE WORKER HELPER [Primary Care Provider, Internal Medicine] Time of Disposition: 11:30 Quality HEART score for chest pain patients History: slightly suspicious ECG: normal Age: < or = to 45 years Risk factors: no risk factors known Troponin: < or = to 1x normal limit Heart score: 0
--- OUTSIDE RECORDS SUMMARY | 2025-06-05 10:28 | XMS_ITS | Encounter Summary ---
Author Organization [facility] Address [address] [place] [address] Care Team Providers Care Multicultural Internship Name Role Phone Unavailable Primary Care Provider Unavailabl e Encounter Details Date Type Department Care Team (Late st Contact Info) Description 05/06/2025 Results Follow-Up [facility] STONEWORKER - [facility] [address] [place] [address] Xochitl Schilling, [address] [place] [address] HCG QUANTITATIVE, BLOOD Social History [...]
--- OUTSIDE RECORDS SUMMARY | 2025-06-05 10:28 | XMS_ITS | Encounter Summary ---
Author Organization [facility] Address [address] [place] [address] Care Team Providers Care Ballet Teacher Name Role Phone Unavailable Primary Care Provider Unavailabl e Reason for Visit * Reason Onset Date Comments Results 05/13/2025 Encounter Details Date Type Department Care Team (Late st Contact Info) Description 05/13/2025 Results Follow-Up [facility] TOPPER PACKER - [facility] [address] [facility] [place] [address] Xochitl Schilling, [address] [place] [address] HCG QUANTITATIVE, BLOOD Social History [...]
--- OUTSIDE RECORDS SUMMARY | 2025-06-05 10:28 | XMS_ITS | Encounter Summary ---
Author Organization [facility] Address [address] [place] [address] Care Team Providers Care Journeyman Operator Assistant Name Role Phone Unavailable Primary Care Provider Unavailabl e Encounter Details Date Type Department Care Team (Late st Contact Info) Description 04/19/2025 Results Follow-Up [facility] ELEVATOR INSTALLER - [facility] [address] [facility] [place] [address] Xochitl Schilling, [address] [place] [address] HCG QUANTITATIVE, BLOOD Social History [...]
--- OUTSIDE RECORDS SUMMARY | 2025-06-05 10:28 | XMS_ITS | Clinical Summary ---
Author Organization [facility] Address [address] [place] [address] Phone Care Team Providers Care Basket Braider Name Role Phone Unavailable Primary Care Provider [...] Department Care Team Description 06/03/2025 Results Follow-Up [facility] [address] [facility] [address] [address] Catrachita Schmid, DO HCG QUANTITATIVE, BLOOD 05/27/2025 Results Follow-Up [facility] [address] [facility] [address] [address] Catrachita Schmid, DO HCG QUANTITATIVE, BLOOD 05/20/2025 Results Follow-Up [facility] [address] [facility] [address] [place] [address] Catrachita Schmid Cotjamila, DO HCG QUANTITATIVE, BLOOD 05/19/2025 External Device Data STL ABSTRACTION Provider, Abstract 05/13/2025 Results Follow-Up [facility] [address] - [address] [facility] [address] [place] [address] Catrachita Schmid Cotjamila, DO HCG QUANTITATIVE, BLOOD 05/11/2025 External Device Data STL ABSTRACTION Provider, Abstract 05/11/2025 External Device Data STL ABSTRACTION Provider, Abstract 05/11/2025 External Device Data STL ABSTRACTION Provider, Abstract 05/10/2025 Orders Only [facility] [address] [place] [address] [place] [address] Catrachita Schmid Coton, DO Left tubal without intrauterine 05/06/2025 Results Follow-Up [facility] [address] - [address] [facility] [address] [place] [address] Catrachita Schmid, DO HCG QUANTITATIVE, BLOOD 05/06/2025 Telephone [facility] Women's Health Clinical Support [address] [place] [address] [place] [address] Barbara Lang RN Follow Up 05/05/2025 External Device Data STL ABSTRACTION Provider, Abstract 05/05/2025 Orders Only [facility] [address] [place] [address] [place] [address] Catrachita Schmid Cothron, DO Left tubal without intrauterine 05/04/2025 Orders Only [facility] [address] [place] [address] [place] [address] Catrachita Schmid Cothron, DO Left tubal without intrauterine 05/03/2025 Orders Only [facility] [address] [place] [address] [place] [address] Tonie, Adriena Cothron, DO Left tubal without intrauterine 04/28/2025 1:15 PM CDT Office Visit [facility] [address] [facility] [place] [address] [address] Catrachita Schmid Justa, Left tubal without intrauterine (Primary Dx) 04/28/2025 11:08 AM CDT - 04/28/2025 11:59 PM CDT Hospital Encounter [address] [place] [address] Tonie Catrachita Marr, DO Discharge Disposition: Home or Self Care 04/28/2025 10:58 AM CDT - 04/28/2025 11:59 PM CDT Hospital Encounter [facility] Laboratory Services [facility] [address] [place] [address] Tonie Catrachita Marr, DO Discharge Disposition: Home or Self Care 04/28/2025 9:30 AM CDT Ancillary Procedure [facility] [address] [facility] [place] [address] Missed menses 04/21/2025 3:30 PM CDT Video Visit [facility] [address] [facility] [place] [address] [place] [address] Tonie Catrachita Marr, DO Vaginal bleeding in , first trimester (Primary Dx) 04/20/2025 Telephone [facility] Clinical Support [address] [address] Ben Burr RN Question 04/19/2025 Results Follow-Up [facility] [address] - [address] [facility] [address] [place] [address] TonieCatrachita, HCG QUANTITATIVE, BLOOD 04/19/2025 Telephone [facility] Clinical Support [address] [address] Sharon Souza RN Follow Up 04/14/2025 External Device Data STL ABSTRACTION Provider, Abstract 04/14/2025 External Device Data STL ABSTRACTION Provider, Abstract 04/14/2025 External Device Data STL ABSTRACTION Provider, Abstract 04/14/2025 External Device Data STL ABSTRACTION Provider, Abstract 04/10/2025 8:30 PM CDT Ancillary Procedure [facility] Obstetrics Emergency Department [address] [place] [address] 04/10/2025 6:31 PM CDT - 04/10/2025 9:55 PM CDT Emergency [facility] Obstetrics Emergency Department [address] [place] [address] of unknown anatomic location (Primary Dx); Vaginal bleeding in Discharge Disposition: Home or Self Care 04/10/2025 Travel 04/08/2025 Telephone [facility] Women's Health Clinical Support [address] [place] [address] Ben Burr, BRADLEY Follow Up; Medication Question 04/06/2025 External Device Data STL ABSTRACTION Provider, Abstract 04/06/2025 External Device Data STL ABSTRACTION Provider, Abstract 04/06/2025 External Device Data STL ABSTRACTION Provider, Abstract 03/31/2025 10:00 AM CDT Office Visit [facility] [address] [facility] [place] [address] Catrachita Schmid, Missed menses (Primary Dx); Personal [...] included. HCG QUANT, BLOOD 168 mIU/mL [facility] Comment: Gestational Age Expected hCG values (mIU/mL) <1 Week: 5-50 1-2 Weeks: 50-500 2-3 Weeks: 100-5000 3-4 Weeks: 500-76678 4-5 Weeks: 1000-43043 5-6 Weeks: [address] 6-8 Weeks: [address] 2-3 Months: [address] The table above provides only a very [...] or approved by the FDA or the investment accountant of the assay. Test Performed at: [facility] [address] [place] [address] [facility] Blood 06/02/2025 12:3 1 PM CDT 06/02/2025 12:31 PM CDT Catrachita Schmid DO CHEMISTRY ORDERABLES F inal Result [facility] [phone] [facility] [address] [place] [address] * (ABNORMAL) CBC WITH DIFFERENTIAL (04/28/2025 11:03 AM CDT) WBC 5.4 4.0 - 9.8 K/uL 04/28/2025 11:15 AM CDT [employer] LABORATORY SERVICES - [facility] RBC 3.82(L) 3.90 - 4.90 M/uL 04/28/2025 11:15 AM CDT [employer] [facility]OR[facility]ORY SERVICES - [facility] HEMOGLOBIN 11.7(L) 11.8 - 14.8 g/dL 04/28/2025 11:15 AM CDT [employer] [facility]ORATORY SERVICES - [facility] HEMATOCRIT 34.6(L) 35.5 - 44.0 % 04/28/2025 11:15 AM CDT [employer] LABORATORY SERVICES - [facility] MCV 90.6 82.0 - 99.0 fL 04/28/2025 11:15 AM CDT [employer] [facility] SERVICES - [facility] MCH 30.6 27.2 - 32.6 pg 04/28/2025 11:15 AM CDT [employer] [facility]ORY SERVICES - [facility] MCHC 33.8 31.5 - 35.5 g/dL 04/28/2025 11:15 AM CDT [employer] [facility] SERVICES - [facility] RDW 13.9 11.5 - 14.5 % 04/28/2025 11:15 AM CDT [employer] [facility] SERVICES - [facility] RDW-STDEV 46.4 37.1 - 48.7 fL 04/28/2025 11:15 AM CDT [employer] [facility] SERVICES - [facility] PLATELETS 261 140 - 350 K/uL 04/28/2025 11:15 AM CDT [employer] [facility]ORY SERVICES - [facility] MPV 8.9(L) 9.3 - 12.4 fL 04/28/2025 11:15 AM CDT [employer] [facility]ORY SERVICES - [facility] NEUTROPHILS 50 % 04/28/2025 11:15 AM CDT [facility] LAB[facility]ATORY SERVICES - . [place] LYMPHOCYTES 38 % 04/28/2025 11:15 AM CDT [facility]ORY SERVICES - [facility] MONOCYTES 10 % 04/28/2025 11:15 AM CDT [facility]ORY SERVICES - [facility] EOSINOPHILS 1 % 04/28/2025 11:15 AM CDT [facility] LABORATORY SERVICES - . [place] BASOPHILS 1 % 04/28/2025 11:15 AM CDT [facility] LABORATORY SERVICES - . [place] IMMATURE GRANULOCYTES 0 % 04/28/2025 11:15 AM CDT [facility] LABORATORY SERVICES - [facility] NEUTROPHIL ABSOLUTE 2.73 1.90 - 7.00 K/uL 04/28/2025 11:15 AM CDT [facility] LABORATORY SERVICES - . [place] LYMPHOCYTE ABSOLUTE 2.08 0.70 - 4.50 K/uL 04/28/2025 11:15 AM CDT [facility] LABORATORY SERVICES - . [place] MONOCYTE ABSOLUTE 0.52 0.10 - 1.30 K/uL 04/28/2025 11:15 AM CDT [facility] LABORATORY SERVICES - [facility] EOSINOPHIL ABSOLUTE 0.05 0.00 - 0.70 K/uL 04/28/2025 11:15 AM CDT [facility] LABORATORY SERVICES - [facility] BASOPHILS ABSOLUTE 0.03 0.00 - 0.20 K/uL 04/28/2025 11:15 AM CDT [facility] LABORATORY SERVICES - . [facility] IMMATURE GRANULOCYTES ABSOLUTE 0.01 0.00 - 0.03 K/uL 04/28/2025 11:15 AM T [facility] LABORATORY SERVICES - [facility] Blood Venipuncture / Unknown 04/28/2025 11:03 AM CDT 04/28/2025 11:13 AM CDT us Catrachita Schmid DO HEMATOLOGY ORDERABLES Final Result [facility] LABORATORY SERVICES - [facility] CLIA# [id number] [address] [facility] [address] [address] * (ABNORMAL) COMPREHENSIVE METABOLIC PANEL (04/28/2025 11:03 AM CDT) [facility] SODIUM 134(L) 136 - 145 mmol/L 04/28/2025 11:54 AM [facility] [employer] LABORATORY SERVICES - [facility] POTASSIUM 4.4 3.5 - 5.0 mmol/L 04/28/2025 11:54 AM [facility] [employer] LABORATORY SERVICES - [facility] CHLORIDE 101 98 - 107 mmol/L 04/28/2025 11:54 AM [facility] [employer] LABORATORY SERVICES - [facility] CO2 23 22 - 29 mmol/L 04/28/2025 11:54 AM [facility] [employer] SERVICES - [facility] CALCIUM 10.2 8.6 - 10.2 mg/dL 04/28/2025 11:54 AM [facility] [employer] SERVICES - . [place] BUN 9 6 - 20 mg/dL 04/28/2025 11:54 AM [facility] [employer] [facility] - . [facility] CREATININE 0.74 0.51 - 0.95 mg/dL 04/28/2025 11:54 AM [facility] [employer] [facility] - . [place] GLUCOSE 91 74 - 99 mg/dL 04/28/2025 11:54 AM [employer] LABORATORY SERVICES - . [place] TOTAL PROTEIN 7.8 6.7 - 8.6 g/dL 04/28/2025 11:54 AM [facility] [employer] LABORATORY SERVICES - [facility] ALBUMIN 4.5 3.5 - 5.2 g/dL 04/28/2025 11:54 AM [facility] [employer] LABORATORY SERVICES - [facility] BILIRUBIN TOTAL 0.2 0.0 - 1.2 mg/dL 04/28/2025 11:54 AM [facility] [employer] LABORATORY SERVICES - . [place] ALKALINE PHOSPHATASE 52 35 - 104 U/L 04/28/2025 11:54 AM light SERVICES - . [place] AST 34(H) <33 U/L 04/28/2025 11:54 AM light SERVICES - . [place] ALT 36(H) <34 U/L 04/28/2025 11:54 AM [facility] [employer] [facility] - . [facility] GFR >60 >=60 mL/min/1.7 3 sq meter 04/28/2025 11:54 AM [facility] [employer] LABORATORY SERVICES - . [place] Comment:eGFR calculated with 2020 CKD-EPI equation. Vegetarian diet, extremely high or low muscle mass, and may affect results. Cystatin C with Glomerular Filtration Rate is a suitable alternative for these patients. ANION GAP 10 8 - 16 mmol/L 04/28/2025 11:54 AM CDT [facility] [employer] [facility] Blood Venipuncture / Unknown 04/28/2025 11:03 AM CDT 04/28/2025 11:24 AM CDT Narrative [facility] [employer] [facility] - 04/28/2025 11:54 AM CDT Samples containing indocyanine green cause interferences on Total and/or Direct Bilirubin and must not be measured. us Catrachita Schmid DO CHEMISTRY ORDERABLES F inal Result [facility] [employer] [facility] CLIA# [id number] [address] [place] [address] * US OB TRANSVAGINAL (04/28/2025 9:41 AM CDT) Only the most recent of2 resultswithin the time period is included. Anatomical Region Laterality Modality Pelvis Ultrasound 04/28/2025 9:17 AM CDT Narrative 04/28/2025 10:02 AM CDT MF/CLINIC FIRST TRIMESTER TV/TA ----- Pat. Name: GIULIA MIDDLETON Study Date: 04/28/2025 9:17am Pat. NO: [id number] Referring MD: CATRACHITA SCHMID DO Site: [address] Private Pilot: Radha Fountain RDMS : 1990 Age: 35 ----- INDICATION ----- Confirm Viability First Trimester Bleeding earlier in CODING ----- Diagnoses O20.9: Hemorrhage in early , unspecified O36.80X0: with inconclusive viability Procedures 39326: Ultrasound, uterus, real time with image documentation [...] with inappropriately rising bHCG levels. Most recent [facility] [place]471. 1. Retroverted uterus with thickened endometrium [...] Procedure Note Fiordaliza Powell MD - 04/28/2025 [facility]/CLINIC FIRST TRIMESTER TV/TA ----- Pat. Name:Rohith MIDDLETON Date:04/28/2025 9:17am Pat. NO: [id number] :CATRACHITA SCHMID DO Site:[place] [id number]:Radha Fountain RDMS :1990Age:35 ----- INDICATION ----- Confirm Viability First Trimester Bleeding earlier inpregnancy CODING ----- Diagnoses O20.9: Hemorrhage in early ,unspecified O36.80X0: with inconclusive fetalviability Procedures 18837: Ultrasound, uterus, real time withimage documentation HISTORY [...] (04/08/2025 3:09 PM CDT) PROGESTERONE 3.8 ng/mL [facility] Comment: Reference Ranges Female Follicular Phase < 1.0 Luteal Phase 2.6-21.5 Post menopausal < 0.5 1st Trimester 4.1-34.0 2nd Trimester 24.0-76.0 3rd Trimester 52.0-302.0 Test Performed at: [facility] [place] [address] [address] [employer] Vo Blood 04/08/2025 3:09 PM CDT 04/08/2025 3:10 PM CDT Thalia Terra Francisco DO CHEMISTRY ORDERABLES Final Resu lt [facility] [phone] [place] [address] [address] * GLUCOSE TOLERANCE 1 HR GESTATIONAL (04/06/2025 9:19 AM CDT) GLUCOSE 1 HR OBSTETRIC 107 <135 mg/dL [facility] Comment: FASTING:YES FASTING: YES Test Performed at: [place] [address] [address] [employer] [facility] Vo Blood 04/06/2025 9:19 AM CDT 04/06/2025 9:20 AM CDT Catrachita Schmid DO CHEMISTRY ORDERABLES F inal Result [facility] [phone] [place] [address] [address] [address] * TSH REFLEXIVE (04/06/2025 9:19 AM CDT) TSH 1.15 mIU/L [facility] Comment: Reference Range > or = 20 Years 0.40-4.50 Ranges First trimester 0.26-2.66 Second trimester 0.55-2.73 Third trimester 0.43-2.91 FASTING:YES FASTING: YES Test Performed at: [place] [address] [place] [address] [employer] Joshua Blood 04/06/2025 9:19 AM CDT 04/06/2025 9:20 AM CDT us Catrachita Schmid DO CHEMISTRY ORDERABLES F inal Result [facility] [phone] [place] [address] [place] [address] * OBSTETRIC PANEL WITH HIV (04/06/2025 9:19 AM CDT) WBC 4.1 3.8 - 10.8 Thousand /uL [facility] RBC 3.96 3.80 - 5.10 Million/ uL [facility] HEMOGLOBIN 12.0 11.7 - 15.5 g/dL [facility] HEMATOCRIT 37.5 35.0 - 45.0 % [facility] MCV 94.7 80.0 - 100.0 fL [facility] MCH 30.3 27.0 - 33.0 pg [facility] MCHC 32.0 32.0 - 36.0 g/dL [facility] Comment: For adults, a slight decrease in the calculated MCHC value (in the range of 30 to 32 g/dL) is most likely not clinically significant; however, it should be interpreted with caution in correlation with other red cell parameters and the patient's clinical condition. RDW 14.1 11.0 - 15.0 % [facility] PLATELETS 301 140 - 400 Thousand /uL [facility] MPV 9.7 7.5 - 12.5 fL [facility] NEUTROPHIL ABSOLUTE 1,919 1,500 - 7,800 cells/uL [facility] LYMPHOCYTE ABSOLUTE 1,779 850 - 3,900 cells/uL [facility] MONOCYTE ABSOLUTE 340 200 - 950 cells/uL [facility] EOSINOPHIL ABSOLUTE 41 15 - 500 cells/uL [facility] BASOPHILS ABSOLUTE 21 0 - 200 cells/uL [facility] NEUTROPHIL 46.8 % [facility] LYMPHOCYTES 43.4 % [facility] MONOCYTE 8.3 % [facility] EOSINOPHILS 1.0 % [facility] BASOPHILS 0.5 % [facility] ANTIBODY SCREEN NO ANTIBODIES DETECTED [facility] Comment: Reference range No antibodies detected This assay is a screening test for the detection of red blood cell antibodies. The test is not to be used for pretransfusion screening or for the medical management of an alloimmunized . ABO GROUP B [facility] RH (D) TYPE RH(D) POSITIVE [facility] Comment: For additional information, please refer to http://Datalot.Xamplified/faq/CPI812 (This link is being provided for informational/ educational purposes only.) RPR NON-REACTIVE NON-REAC TIVE [facility] Comment: No laboratory evidence of syphilis. If recent exposure is suspected, submit a new sample in 2-4 weeks. HEPATITIS B SURFACE AG NON-REACTIVE NON-REAC TIVE [facility] Comment: For additional information, please refer to http://Datalot.Hingi/faq/JLK247 (This link is being provided for informational/ educational purposes only.) RUBELLA IMMUNE STATUS 2.44 Index [facility] Comment: Index Interpretation ----- <0.90 Not consistent with immunity 0.90-0.99 Equivocal > or = 1.00 Consistent with immunity The presence of rubella IgG antibody suggests immunization or past or current infection with rubella virus. QUEST RESULT [facility] Comment: Quest component Name and Code: HIV FINAL INTERPRETATION [[id number]] HIV Negative HIV-1 antigen and HIV-1/HIV-2 antibodies were not detected. There is no laboratory evidence of HIV infection. HIV-1/2 AG AND AB SCREEN NON-REACTIVE NON-REAC TIVE [facility] HEPATITIS C AB NON-REACTIVE NON-REAC TIVE [facility] Comment: HCV antibody was non-reactive. There is no laboratory evidence of HCV infection. In most cases, no further action is required. However, if recent HCV exposure is suspected, a test for HCV RNA (test code 01226) is suggested. For additional information please refer to http://education.Hingi/faq/ECS90r9 (This link is being provided for informational/ educational purposes only.) FASTING:YES FASTING: YES Test Performed at: [facility] [address] [facility] [place] [address] Donta SOLARES Blood 04/06/2025 9:19 AM CDT 04/06/2025 9:20 AM CDT Catrachita Schmid DO CHEMISTRY ORDERABLES F inal Result Performing Organization Address City/[facility]/ZIP Co de Phone Number [facility] [phone] [facility] [address] [address] [facility] [place] [address] * URINE CULTURE, W/GBS SUSCEPTIBILITIES (04/05/2025 1:37 PM CDT) CULTURE, URINE, , W/GBS SUSCEPTIBILITIES SEE NOTE [facility] Comment: CULTURE, URINE, , W/GBS SUSCEPTIBILITIES Micro Number: [id number] Test Status: Final Specimen Source: Urnie Specimen Quality: Adequate Result: No Growth Test Performed at: [facility] [address] [address] Donta Joshua Urine URINE SPECIMEN OBTAINED BY CLEAN CATCH PROCEDURE / Unknown 04/05/2025 1:37 PM CDT 04/05/2025 1:37 PM CDT Catrachita Schmid DO MICROBIOLOGY - GENERAL ORDERABLES Final Result [facility] [phone] [facility] [address] [place] [address] * GC/CHLAMYDIA, UROGENITAL (04/05/2025 1:32 PM CDT) Pathologist [facility] CHLAMYDIA TRACHOMATIS RNA, TMA, UROGENITAL NOT DETECTED NOT DETECTED [facility] NEISSERIA GONORRHOEAE RNA, TMA, UROGENITAL NOT DETECTED NOT DETECTED [facility] COMMENT INFECTIOUS DISEASE [facility] Comment: The analytical performance characteristics of this assay, when used to test SurePath(TM) specimens have been determined by [facility]. The modifications have not been cleared or approved by the FDA. This assay has been validated pursuant to the CLIA regulations and is used for clinical purposes. For additional information, please refer to https://education.Hingi/faq/BHS371 (This link is being provided for information/ educational purposes only.) FASTING:NO FASTING: NO Test Performed at: [facility] [address] [place] [address] Donta Joshua MD Genital (Urine, 1st catch) 04/05/2025 1:32 PM CDT 04/05/2025 1:33 PM CDT Catrachita Schmid DO MICROBIOLOGY - GENERAL ORDERABLES Final Result Performing Organization Address City/State/ZIP Co nd Phone Number [facility] [phone] [facility] [address] [place] [address] * (ABNORMAL) POC , URINE (03/31/2025 11:00 AM CDT) Pathologist [facility] HCG QUAL URINE POC Positive( A) Negative, Indeterminate [facility] INTERNAL KIT QC POC Pass Pass [facility] KIT LOT NUMBER POC [phone] [facility] KIT EXP DATE POC [facility] Urine 03/31/2025 11:0 0 AM CDT us Catrachita Schmid DO POINT OF CARE TESTING Final Result [facility] CLIA# [id number] [address] [facility] [address] [place] [address] from Last 3 Months Insurance [facility] BLUE ACCESS/TRUE BLUE PPO
--- OUTSIDE RECORDS SUMMARY | 2025-06-05 10:28 | XMS_ITS | Encounter Summary ---
Author Organization [facility] Address [address] [place] [address] Care Team Providers Care Fire Equipment Repairer Inspector Name Role Phone Unavailable Primary Care Provider Unavailabl e Encounter Details Date Type Department Care Team (Late st Contact Info) Description 05/20/2025 Results Follow-Up [facility] SWITCHMAN SUPERVISOR - [address] [address] Xochitl Schilling, [address] [place] [address] HCG QUANTITATIVE, BLOOD Social History [...]
--- OUTSIDE RECORDS SUMMARY | 2025-06-05 10:28 | XMS_ITS | Encounter Summary ---
Author Organization [facility] Address [address] [place] [address] Care Team Providers Care Computer Systems Technology Instructor Name Role Phone Unavailable Primary Care Provider Unavailabl e Encounter Details Date Type Department Care Team (Late st Contact Info) Description 05/27/2025 Results Follow-Up [facility] MANAGER REIMBURSEMENT - [address] [address] Xochitl Schilling, [address] [place] [address] HCG QUANTITATIVE, BLOOD Social History [...]
--- OUTSIDE RECORDS SUMMARY | 2025-06-05 10:28 | XMS_ITS | Encounter Summary ---
Author Organization [facility] Address [address] [place] [address] Care Team Providers Care Plugging Machine Operator Name Role Phone Unavailable Primary Care Provider Unavailabl e Encounter Details Date Type Department Care Team (Late st Contact Info) Description 06/03/2025 Results Follow-Up [facility] STOCK AND STATION AGENT - [id number] [address] Xochitl Schilling, [address] [place] [address] HCG QUANTITATIVE, BLOOD Social History [...]
--- OUTSIDE RECORDS SUMMARY | 2025-06-05 10:28 | XMS_ITS | Clinical Summary ---
Author Organization [facility] Address [address] [place] [address] Care Team Providers Care Textile Finisher Name Role Phone Sola Mills MD Unavailable [phone] Fiordaliza Dennis NP Unavailable [phone] Unknown, Notinfile Primary Care Provider Unavail able Xochitl Schilling DO Unavailable [phone] Allergies No known active allergies Medications dextroamphetami [...] Type Department Care Team Description 05/12/2025 Documentation [facility] Medicine Bone Marrow Transplant [address] [place] [id number] Cotlon Cunningham MD 05/11/2025 Telephone [facility] Medicine Physicians [facility] [address] [place] [address] [address] [place] [address] Elvira Pradhan 04/01/2025 Telephone [facility] [place] [place] [facility] [address] [place] [address] [address] [place] [address] Colton Cunningham MD 03/31/2025 Patient Self-Triage [facility]/ [facility]icians [address] [place] [address] Ron, Generic Provider from Last 3 Months [...] on file Legal Sex Female 7:47 PM [employer] ARCHITECT Gender Identity Not on file Sexual Orientation Not on file 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 [place] [id number] Consulting Physician Obstetrics and Gynecology 05/11/25
[2025-06-05] MEDS: KETOROLAC 15 MG/ML VIAL (*BKC) IV PUSH (11:22)
[2025-06-05 11:27] VITALS: BP 118/70; PULSE 60; RESP 15; O2SAT 99
== END 2025-06-05 11:45 | disposition home or self-care (01) ==
PROVIDERS: Emergency Provider Emergency Medicine
DX: R09.1 Pleurisy (principal); F17.290 Nicotine dependence, other tobacco product, uncomplicated
CPT/HCPCS: 36415; 71046; 80053; 81025; 83690; 84484; 85025; 85380; 85610; 85730; 93005; 96374; 99284; J1885